=== PATIENT | male | born 1970 | race Caucasian/White ===

== ENCOUNTER 2021-04-11 01:32 | Emergency (ER) | payer OTHER | END 2021-04-11 05:10 | disposition home or self-care (01) | LOC: EC 01:32 | DX: R05.9 Cough, unspecified (principal); Z20.822 Contact with and (suspected) exposure to COVID-19 | CPT/HCPCS: 87635; 99283 ==

== ENCOUNTER 2023-08-31 14:29 | Inpatient (IN) | payer OTHER ==
--- NOTE | 2023-08-31 14:36 | ED ---
General Adult HPI - General Chief complaint: Chest Pain Stated complaint: chest pain Time Seen by Provider: 08/31/23 14:30 Source: patient, RN notes reviewed, old records reviewed - History of Present Illness Initial comments: Patient is a 52-year-old male who presents emergency department complaining of sudden onset chest pain. Has a history of hypertension. Denies any history of cardiac issues or stenting. States he was working on his car when he began to develop sudden substernal chest pain with radiation down the left arm. Describes it as a sharp, aching sensation. Endorses diaphoresis with it. Denies nausea or vomiting. Called EMS and presents for further evaluation at this time. Denies shortness of breath. Denies any abdominal pain. Has no other acute complaints. Patient received no medications from EMS. Presents for further evaluation. - Related Data Home Medications Medication Instructions Recorded Confirmed HYDROcodone/APAP 10-325MG [[place] 1 tab PO TID PRN 08/31/23 08/31/23 10-325] Meloxicam [Mobic] 15 mg PO DAILY PRN 08/31/23 08/31/23 amLODIPine [Norvasc] 5 mg PO DAILY 08/31/23 08/31/23 lisinopriL [Zestril] 20 mg PO DAILY 08/31/23 08/31/23 Allergies Allergy/AdvReac Type Severity Reaction Status Date / Time Penicillins Allergy Rash/Hives Verified 08/31/23 14:47 Review of Systems ROS Statement: Those systems with pertinent positive or pertinent negative responses have been documented in the HPI. Review of Systems: CONST: Denies fever EYES: Denies blurry vision ENT: Denies nasal congestion C/V: Endorses chest pain RESP: Denies shortness of breath GI: Denies abdominal pain : Denies dysuria SKIN: Denies rash. MSK: Denies joint pain. NEURO: Denies headache ROS Other: All systems not noted in ROS Statement are negative. General Exam - General Exam Comments Initial Comments: General: Appears in moderate distress secondary to chest pain HEAD: Normal with no signs of head trauma. EYES: PERRLA, EOMI, conjunctiva normal, no discharge. ENT: Hearing grossly intact, normal oropharynx. RESPIRATORY: Clear breath sounds bilaterally. No wheezes, rales, or rhonchi. C/V: Regular rate and rhythm. S1 and S2 auscultated, no edema, peripheral pulses 2+ and intact throughout ABD: Abd is soft, nontender, nondistended EXT: Normal range of motion, no obvious deformity SKIN: No rashes or lesions observed on exposed skin. NEURO: Alert and oriented x 4. Course Vital Signs 08/31/23 08/31/23 08/31/23 14:35 14:40 14:43 Temperature 97.3 F L Pulse Rate 91 85 84 Respiratory 18 18 16 Rate Blood Pressure 126/78 128/81 131/75 O2 Sat by Pulse 96 98 99 Oximetry 08/31/23 08/31/23 14:45 14:50 Temperature Pulse Rate 82 87 Respiratory 18 18 Rate Blood Pressure 140/82 143/91 O2 Sat by Pulse 98 97 Oximetry Medical Decision Making - Medical Decision Making Was pt. sent in by a medical professional or institution (, PA, [employer]OTTOM FELLER, urgent care, hospital, or fdc...) When possible be specific @ -No Did you speak to anyone other than the patient for history (EMS, parent, family, police, friend...)? What history was obtained from this source @ -No Did you review nursing and triage notes (agree or disagree)? Why? @ -I reviewed and agree with nursing and triage notes Were old charts reviewed (outside hosp., previous admission, EMS record, old EKG, old radiological studies, urgent care reports/EKG's, fdc records)? Report findings @ -Old charts reviewed Differential Diagnosis (chest pain, altered mental status, abdominal pain women, abdominal pain men, vaginal bleeding, weakness, fever, dyspnea, syncope, headache, dizziness, GI bleed, back pain, seizure, CVA, palpatations, mental health, musculoskeletal)? @ -Differential Chest Pain: Stable Angina, Unstable Angina, STEMI, NSTEMI Aortic Dissection, Pneumothorax, Musculoskeletal, Esophageal Spasm GERD, Cholecystitis, Pancreatitis, Zoster, this is not meant to be an all-inclusive list. EKG interpreted by me (3pts min.). @ -As above X-rays interpreted by me (1pt min.). @ -Chest x-ray reveals no obvious acute cardiopulmonary process. CT interpreted by me (1pt min.). @ -None done U/S interpreted by me (1pt. min.). @ -None done What testing was considered but not performed or refused? (CT, X-rays, U/S, labs)? Why? @ -None What meds were considered but not given or refused? Why? @ -For his Chest pain, considered nitro but I will avoid in the setting of concern for inferior SD. I offered morphine however patient declines at this time. Did you discuss the management of the patient with other professionals (professionals i.e. DrMarj, PA, SLE[employer]OTTOM FELLER, lab, RT, psych nurse, psychologist social, director of estate, teacher, commanding officer traffic division, housing case manager)? Give summary @ -Discussed with on-call geospatial engineer, Dr. Bran who was in agreement with the plan for STEMI activation and patient will report Durable Medical Equipment Technician as soon as staff is available. I spoke with [facility] physician group Dr. Lu who accepted the admission. Was smoking cessation discussed for >3mins.? @ -No Was critical care preformed (if so, how long)? @ -No Were there social determinants of health that impacted care today? How? (Homelessness, low income, unemployed, alcoholism, drug addiction, transportation, low edu. Level, literacy, decrease access to med. care, custodial, rehab)? @ -No Was there de-escalation of care discussed even if they declined (Discuss DNR or withdrawal of care, Hospice)? DNR status @ -No What co-morbidities impacted this encounter? (DM, HTN, Smoking, COPD, CAD, Cancer, CVA, ARF, Chemo, Hep., AIDS, mental health diagnosis, sleep apnea, morbid obesity)? @ -Hypertension, obesity Was patient admitted / discharged? Hospital course, mention meds given and route, prescriptions, significant lab abnormalities, going to OR and other pertinent info. @ -Based on the patient's presentation and physical exam, presents with sudden onset chest pain. Patient was placed in room T3a. EKG obtained showed a STEMI. STEMI pager was activated. I spoke with Dr. Bran who was in agreement plan for workup. Patient administered 1 L fluid bolus as well as 324 mg of aspirin and 80 mg of Lipitor. Patient placed on cardiac pads as well as a monitor. Placed on nasal cannula oxygen as well. Due to concern for it being an inferior SD, recommended no nitroglycerin and I did offer morphine for chest pain however patient declines at this time. Chest x-ray revealed no obvious acute cardiopulmonary process. Patient was dispositioned to the Durable Medical Equipment Technician. Laboratory studies returned after the patient was admitted and were remarkable for slightly elevated troponin of 0.038. Patient also had a leukocytosis of 14. I spoke with [facility] physician group Dr. Lu who accepted the admission. Undiagnosed new problem with uncertain prognosis? @ -No Drug Therapy requiring intensive monitoring for toxicity (Heparin, Nitro, Insulin, Cardizem)? @ -Heparin Were any procedures done? @ -No Diagnosis/symptom? @ -STEMI Acute, or Chronic, or Acute on Chronic? @ -Acute Uncomplicated (without systemic symptoms) or Complicated (systemic symptoms)? @ -Complicated Side effects of treatment? @ -No Exacerbation, Progression, or Severe Exacerbation? @ -No Poses a threat to life or bodily function? How? (Chest pain, [place], SD, pneumonia, PE, COPD, DKA, ARF, appy, cholecystitis, CVA, Diverticulitis, Homicidal, Suicidal, threat to staff... and all critical care pts) @ -Yes - Lab Data Result diagrams: 08/31/23 14:42 08/31/23 14:42 Lab Results 08/31/23 08/31/23 08/31/23 Range/Units 14:42 14:42 14:42 WBC 14.2 H (3.8-10.6) k/uL RBC 5.33 (4.30-5.90) m/uL Hgb 16.4 (13.0-17.5) gm/dL Hct 49.6 (39.0-53.0) % MCV 93.0 (80.0-100.0) fL MCH 30.8 (25.0-35.0) pg MCHC 33.1 (31.0-37.0) g/dL RDW 13.6 (11.5-15.5) % Plt Count 270 (150-450) k/uL MPV 8.0 Neutrophils % 56 % Lymphocytes % 33 % Monocytes % 6 % Eosinophils % 2 % Basophils % 1 % Neutrophils # 8.0 H (1.3-7.7) k/uL Lymphocytes # 4.6 (1.0-4.8) k/uL Monocytes # 0.9 (0-1.0) k/uL Eosinophils # 0.3 (0-0.7) k/uL Basophils # 0.1 (0-0.2) k/uL PT 10.9 (10.0-12.5) sec INR 1.0 (<1.2) APTT 22.0 (22.0-30.0) sec Sodium 140 (137-145) mmol/L Potassium 3.8 (3.5-5.1) mmol/L Chloride 105 (98-107) mmol/L Carbon Dioxide 24 (22-30) mmol/L Anion Gap 11 mmol/L BUN 14 (9-20) mg/dL Creatinine 0.90 (0.66-1.25) mg/dL Est GFR (CKD-EPI)AfAm >90 (>60 ml/min/1.73 sqM) Est GFR (CKD-EPI)NonAf >90 (>60 ml/min/1.73 sqM) Glucose 123 H (74-99) mg/dL Calcium 10.0 (8.4-10.2) mg/dL Total Bilirubin 0.7 (0.2-1.3) mg/dL AST 48 (17-59) U/L ALT 62 H (4-49) U/L Alkaline Phosphatase 89 (38-126) U/L Troponin I (0.000-0.034) ng/mL Total Protein 8.9 H (6.3-8.2) g/dL Albumin 5.0 (3.5-5.0) g/dL 08/31/23 Range/Units 14:42 WBC (3.8-10.6) k/uL RBC (4.30-5.90) m/uL Hgb (13.0-17.5) gm/dL Hct (39.0-53.0) % MCV (80.0-100.0) fL MCH (25.0-35.0) pg MCHC (31.0-37.0) g/dL RDW (11.5-15.5) % Plt Count (150-450) k/uL MPV Neutrophils % % Lymphocytes % % Monocytes % % Eosinophils % % Basophils % % Neutrophils # (1.3-7.7) k/uL Lymphocytes # (1.0-4.8) k/uL Monocytes # (0-1.0) k/uL Eosinophils # (0-0.7) k/uL Basophils # (0-0.2) k/uL PT (10.0-12.5) sec INR (<1.2) APTT (22.0-30.0) sec Sodium (137-145) mmol/L Potassium (3.5-5.1) mmol/L Chloride (98-107) mmol/L Carbon Dioxide (22-30) mmol/L Anion Gap mmol/L BUN (9-20) mg/dL Creatinine (0.66-1.25) mg/dL Est GFR (CKD-EPI)AfAm (>60 ml/min/1.73 sqM) Est GFR (CKD-EPI)NonAf (>60 ml/min/1.73 sqM) Glucose (74-99) mg/dL Calcium (8.4-10.2) mg/dL Total Bilirubin (0.2-1.3) mg/dL AST (17-59) U/L ALT (4-49) U/L Alkaline Phosphatase (38-126) U/L Troponin I 0.038 H* (0.000-0.034) ng/mL Total Protein (6.3-8.2) g/dL Albumin (3.5-5.0) g/dL - EKG Data -: EKG Interpreted by Me EKG Comments: 12-lead Electrocardiogram Interpretation Note EKG was reviewed and interpreted by myself. 12-lead ECG performed at 1430 is interpreted by me as revealing normal sinus rhythm at a rate of 79 beats per minute. [place] is rightward deviated. [place] interval is 223 ms, QRS duration is 111 ms, QTc is [address] segment elevations in lead II, 3, aVF with reciprocal depression in aVL.. R wave progression across the precordium was satisfactory. By my interpretation, this EKG is concerning for an acute STEMI.. Critical Care Time Critical Care Time: Yes Total Critical Care Time: 20 Disposition Clinical Impression: STEMI (ST elevation myocardial infarction) Disposition: ADMITTED IP TO THIS HOSP Condition: Serious Time of Disposition: 14:50
[2023-08-31] MEDS: HEPARIN SODIUM 1,000 UN/ML (10ML VL) IV ONE (14:40)
[2023-08-31] MEDS: SODIUM CHLORIDE 0.9% 1,000 ML IV STA (14:41)
[2023-08-31] MEDS: ATORVASTATIN 80 MG TAB PO STA (14:41)
[2023-08-31] MEDS: ASPIRIN 81 MG PO STA (14:41)
[2023-08-31] MEDS ORDERED: NALOXONE 0.4 MG/ML 1 ML VIAL IV PRN (14:58)
[2023-08-31] MEDS: IV FLUID CONTINUATION 100 ML IV ONE (14:59)
[2023-08-31] MEDS ORDERED: LIDOCAINE 1% INJ 10MG/ML (20 ML MDV) ONE (15:02)
[2023-08-31] MEDS ORDERED: HEPARIN SODIUM 1,000 UN/ML (10ML VL) ONE (15:02)
[2023-08-31] MEDS ORDERED: VERAPAMIL 2.5 MG/ML 2 ML AMP ONE ×2 (15:02→15:27)
[2023-08-31] MEDS: fentaNYL (PF) 50 MCG/1 ML VIAL IVP ONE (15:07)
[2023-08-31] MEDS: MIDAZOLAM 2 MG/2 ML VIAL IVP ONE (15:07)
[2023-08-31] MEDS ORDERED: fentaNYL (PF) 50 MCG/ML 2 ML AMP ONE (15:07)
[2023-08-31] MEDS: LIDOCAINE 1% INJ 10MG/ML (20 ML MDV) SQ ONE (15:08)
--- NOTE | 2023-08-31 15:11 | XR ---
EXAMINATION TYPE: XR chest 1V portable DATE OF EXAM: 08/31/2023 2:43 PM CLINICAL INDICATION:Male, 52 years old with history of chest pain; [facility] COMPARISON: None TECHNIQUE: XR chest 1V portable Frontal view of the chest. FINDINGS: Lungs/Pleura: Low lung volumes are present. There is no evidence of pleural effusion, focal consolida tion, or pneumothorax. Pulmonary vascularity: Unremarkable. Heart/mediastinum: Cardiomediastinal silhouette is unremarkable. Musculoskeletal: No acute osseous pathology. IMPRESSION: Low lung volumes with a generalized hazy appearance which could represent atelectasis versus pulmonar y edema correlate with serum BNP.
[2023-08-31] MEDS: VERAPAMIL SYRINGE (5 MG/10 ML) INTRAARTER ONE ×2 (15:12→15:30)
[2023-08-31] MEDS: HEPARIN SODIUM 1,000 UN/ML (10ML VL) IVP ONE (15:15)
[2023-08-31] MEDS: SODIUM CHLORIDE 0.9% 1,000 ML IV ONE (15:16)
[2023-08-31 15:22] LABS: Basophils # (A) 0.1 k/uL (0-0.2); Basophils % (A) 1 %; Eosinophils # (A) 0.3 k/uL (0-0.7); Eosinophils % (A) 2 %; HCT 49.6 % (39.0-53.0); HGB 16.4 gm/dL (13.0-17.5); Lymphocytes # (A) 4.6 k/uL (1.0-4.8); Lymphocytes % (A) 33 %; MCH 30.8 pg (25.0-35.0); MCHC 33.1 g/dL (31.0-37.0); Monocytes # (A) 0.9 k/uL (0-1.0); Monocytes % (A) 6 %; Neutrophils % (A) 56 %; Platelet Count 270 k/uL (150-450); RBC 5.33 m/uL (4.30-5.90); RDW 13.6 % (11.5-15.5); WBC 14.2 k/uL (3.8-10.6)
[2023-08-31 15:25] LABS: ALT 62 U/L (4-49); AST 48 U/L (17-59); African American GFR (CKD) >90 (>60 ml/min/1.73 sqM); Alkaline Phosphatase 89 U/L (38-126); Anion Gap 11 mmol/L; Blood Urea Nitrogen 14 mg/dL (9-20); Carbon Dioxide 24 mmol/L (22-30); Chloride 105 mmol/L (98-107); Glucose 123 mg/dL (74-99); Non-African American GFR(CKD) >90 (>60 ml/min/1.73 sqM); Potassium 3.8 mmol/L (3.5-5.1); Sodium 140 mmol/L (137-145); Total Bilirubin 0.7 mg/dL (0.2-1.3); Total Protein 8.9 g/dL (6.3-8.2)
[2023-08-31 15:26] LABS: Prothrombin Time 10.9 sec (10.0-12.5)
[2023-08-31] MEDS ORDERED: TICAGRELOR 90 MG TAB ONE (15:29)
[2023-08-31] MEDS: TICAGRELOR 90 MG TAB PO ONE (15:31)
[2023-08-31] MEDS: HYDROmorphone 0.5 MG/0.5 ML SYRINGE IVP ONE (15:42)
[2023-08-31] MEDS: IOPAMIDOL-370 100ML BTL INJ ONE (15:50)
[2023-08-31 16:20] LABS: Glucose,Whole Blood 130 mg/dL (70-110)
[2023-08-31] MEDS ORDERED: ZOLPIDEM 5 MG TAB PO PRN (16:25)
[2023-08-31] MEDS ORDERED: ATROPINE SULFATE 0.1 MG/ML 10ML SYRINGE IV PRN (16:25)
[2023-08-31] MEDS ORDERED: MAG HYDROX/AL HYDROX/SIMETH 30 ML CUP PO PRN (16:25)
[2023-08-31] MEDS ORDERED: RX INFO: IV CONTRAST WAS GIVEN 1 EACH MISC MISCELLANE PRN (16:25)
[2023-08-31] MEDS: SODIUM CHLORIDE 0.9% 1,000 ML in EMPTY BAG 1 BAG IV SCH (16:32)
--- NOTE | 2023-08-31 16:32 | P.PCN ---
Date of Procedure: 08/31/23 Operative Findings: PERCUTANEOUS CORONARY INTERVENTION Performing physician Carl Connell M.D. Procedure Performed: 1. Successful stenting of the proximal RCA using 4.0 x 28 mm Xience drug-eluting stent with an excellent angiographic results. 2. Adjunctive use of intravascular imaging (IVUS) Indication: Acute inferior ST elevation myocardial infarction Approach: Right radial artery Complications: None Level of Sedation: Moderate with a sedation length of 25 minutes Procedure Discussion: Please refer to diagnostic heart catheterization was performed by Dr. Bran earlier today. Anticoagulation was initiated using heparin with continuous ACT monitoring. Subsequently I did engage the RCA using JR4 guiding catheter. After that I did wired the RCA using a run-through wire. Balloon angioplasty was performed using 3.0 mm balloon after angiogram was performed. Then I did intravascular ultrasound of the RCA which showed a diameter around 4 mm. I deployed a 4.0 x 28 mm Xience drug-eluting stent where the stent was positioned under fluoroscopy guidance and deployed under fluoroscopy guidance. Intravascular ultrasound was performed again and showed that the stent was not well expanded. I did postdilated using 4.5 mm balloon with a subsequent angiogram and intravascular imaging showed great results and the patient had KAITLIN-3 flow and he was completely asymptomatic by the end of the procedure with no EKG changes. The procedure was completed with no complication Postprocedure Management: 1. Dual antiplatelet therapy using aspirin and Brilinta for 12 months 2. Aggressive cholesterol control 3. Risk factors modification
[2023-08-31] MEDS: HEPARIN SOD,PORK IN 0.45% NACL 25,000 UNIT in 0.45% NACL 1 250ML.BAG IV SCH (16:57)
[2023-08-31] MEDS: NITROGLYCERIN SL TABS 0.4 MG TAB SUBLINGUAL PRN (17:02)
[2023-08-31] MEDS: MORPHINE SULFATE 4 MG/ML SYRINGE IVP STA (17:16)
[2023-08-31] MEDS ORDERED: ACETAMINOPHEN TAB 325 MG TAB PO PRN (18:02)
[2023-08-31] MEDS ORDERED: bisacodyL 5 MG TABLET.DR PO PRN (18:02)
[2023-08-31] MEDS ORDERED: ONDANSETRON 4 MG/2 ML VIAL IVP PRN (18:02)
--- NOTE | 2023-08-31 18:07 | P.HPIM ---
History of Present Illness H&P Date: 08/31/23 Patient is a 52-year-old male with history of hypertension and tobacco dependency who presented to the emergency department with complaints of chest pain. He was activated as a code STEMI. On arrival vital signs are within normal limits. Patient was taken to the [facility] and underwent PCI to the RCA. Initial laboratory analysis included CBC, coags, CMP, and troponin which were remarkable for white blood cell count 14.2, glucose 123, ALT 62, and troponin 0.038. Chest x-ray reviewed low lung volumes with increased pulmonary vascular congestion. After his cath he was admitted to the ICU Patient seen and examined at bedside. He started having some chest pain yesterday. He then took a dose of lisinopril which she had not been compliant with at home. 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 This is progressed to left-sided chest pain and was associated with lightheaded and dizziness, nausea, diaphoresis, and numbness and tingling down into his left arm and up into his jaw. It reportedly lasted approximately 15 minutes before seeking care in the emergency department. He has had chest pain at home before but has never sought medical care for it because it was fleeting. He is attempting to reestablish with a primary care provider. Vital signs reviewed General: nontoxic, no distress, appears at stated age Derm: warm, dry Eyes: EOMI, no lid lag, anicteric sclera, pupils equal round reactive to light ENT: Nose and ears atraumatic Cardiovascular: S1S2 reg, no murmur, no edema Lungs: clear to auscultation bilateral, no rhonchi, no rales, no wheeze, no accessory muscle use Abdominal: soft, nontender to palpation, no guarding Ext: no gross muscle atrophy, no contractures Neuro: CN II-XII grossly intact, No focal neuro deficits Psych: Alert, oriented, appropriate affect Assessment/Plan: Inferior ST segment elevated myocardial infarction Hypertension -Aspirin 81 mg daily, Brilinta 90 mg twice daily, Lipitor 80 mg at night -Lisinopril 2.5 mg daily, metoprolol 25 mg twice daily -Check echocardiogram in a.m. -Follow telemetry - cardiology recommendations. Aspirin and Brilinta for 12 months with aggressive risk factor modification. - lipid profile and A1C -Due to contrast exposure will recheck basic metabolic profile tomorrow Leukocytosis, suspect reactive -Repeat CBC in a.m. Nicotine dependency Class III obesity -Tobacco cessation - outpatient structued weight loss Imaging: Chest x-ray is reviewed by myself demonstrates increased pulmonary vascular congestion Data Review: As per HPI The patient is admitted with an anticipated greater than 2 midnight stay for evaluation of []. Surrogate decision-maker: Car Ramos CODE STATUS:Full DVT prophylaxis:early ambulation Anticipated discharge date: in 48-[address]: home This dictation was prepared using MADS voice recognition software. Though every attempt is made to correct errors during dictation some may still exist. Past Medical History Past Medical History: Chest Pain / Angina, Hypertension, Myocardial Infarction (HI) Last Myocardial Infarction Date:: 08/31/23 History of Any Multi-Drug Resistant Organisms: None Reported Past Surgical History: No Surgical Hx Reported Smoking Status: Current every day smoker Past Alcohol Use History: None Reported Past Drug Use History: None Reported Medications and Allergies Home Medications Medication Instructions Recorded Confirmed Type HYDROcodone/APAP 10-325MG [[place] 1 tab PO TID PRN 08/31/23 08/31/23 History 10-325] Meloxicam [Mobic] 15 mg PO DAILY PRN 08/31/23 08/31/23 History amLODIPine [Norvasc] 5 mg PO DAILY 08/31/23 08/31/23 History lisinopriL [Zestril] 20 mg PO DAILY 08/31/23 08/31/23 History Allergies Allergy/AdvReac Type Severity Reaction Status Date / Time Penicillins Allergy Rash/Hives Verified 08/31/23 14:47 Physical Exam Osteopathic Statement: *. No significant issues noted on an osteopathic structural exam other than those noted in the History and Physical/Consult. Vitals: Vital Signs Temp Pulse Resp BP Pulse Ox 08/31/23 18:00 81 14 98 08/31/23 17:45 89 13 154/89 98 08/31/23 17:30 86 13 157/86 96 08/31/23 17:15 84 13 172/98 97 08/31/23 17:00 92 15 171/95 98 08/31/23 16:45 78 12 169/97 97 08/31/23 16:32 98.1 F 08/31/23 16:30 80 12 189/101 98 08/31/23 16:15 98.1 F 84 23 189/101 98 08/31/23 16:10 84 33 H 08/31/23 14:50 87 18 143/91 97 08/31/23 14:45 82 18 140/82 98 08/31/23 14:43 97.3 F L 84 16 131/75 99 08/31/23 14:40 85 18 128/81 98 08/31/23 14:35 91 18 126/78 96 Intake and Output 08/31/23 08/31/23 08/31/23 06:59 14:59 22:59 Intake Total 100 450 Balance 100 450 Intake: IV 100 450 Sodium Chloride 0.9% 1, 150 000 ml @ 0 mls/hr IV .[facility] Rx#:[id number] Other: Voiding Method Urinal Weight 155.582 kg 155.582 kg Results CBC & Chem 7: 08/31/23 14:42 08/31/23 14:42 Labs: Abnormal Lab Results - Last 24 Hours (Table) 08/31/23 08/31/23 08/31/23 Range/Units 14:42 14:42 14:42 WBC 14.2 H (3.8-10.6) k/uL Neutrophils # 8.0 H (1.3-7.7) k/uL Glucose 123 H (74-99) mg/dL POC Glucose (mg/dL) (70-110) mg/dL ALT 62 H (4-49) U/L Troponin I 0.038 H* (0.000-0.034) ng/mL Total Protein 8.9 H (6.3-8.2) g/dL 08/31/23 Range/Units 16:18 WBC (3.8-10.6) k/uL Neutrophils # (1.3-7.7) k/uL Glucose (74-99) mg/dL POC Glucose (mg/dL) 130 H (70-110) mg/dL ALT (4-49) U/L Troponin I (0.000-0.034) ng/mL Total Protein (6.3-8.2) g/dL Thrombosis Risk Factor Assmnt - Choose All That Apply Any of the Below Risk Factors Present?: Yes Each Factor Represents 1 point: Acute HI, Age 41-60 years, Obesity (BMI >25) Other Risk Factors: No Other congenital or acquired thrombophilia - If yes, enter type in comment: No Thrombosis Risk Factor Assessment Total Risk Factor Score: 3 Thrombosis Risk Factor Assessment Level: Moderate Risk
[2023-08-31 18:16] LABS: Amphetamine Screen,Urine Not Detected (NotDetected); Barbiturate Screen,Urine Not Detected (NotDetected); Benzodiazepines Screen,Urine Not Detected (NotDetected); Cocaine Screen,Urine Not Detected (NotDetected); Methadone Screen, Urine Not Detected (NotDetected); Opiate Screen,Urine Detected (NotDetected); Oxycodone Screen, Urine Not Detected (NotDetected); Phencyclidine Screen,Urine Not Detected (NotDetected); Tricyclic Antidepressant,Urine Not Detected (NotDetected); Urn Cannabinoid Scrn Not Detected (NotDetected)
[2023-08-31] MEDS: METOPROLOL TARTRATE 25 MG TAB PO SCH (19:00)
[2023-08-31] MEDS: HYDROmorphone 0.5 MG/0.5 ML SYRINGE IVP STA (19:43)
[2023-08-31] MEDS: amLODIPine 10 MG TAB PO STA (19:43)
[2023-08-31] MEDS: LOSARTAN 50 MG TAB PO STA (19:43)
[2023-08-31] MEDS: NITROGLYCERIN OINT 1 INCH/GM PACKET TOPICAL SCH (19:44)
--- NOTE | 2023-08-31 21:50 | CC ---
CARDIAC CATHETERIZATION REPORT INDICATION: Acute inferior wall myocardial infarction. PROCEDURE NOTE: After obtaining informed consent, left heart catheterization and coronary angiogram were performed via the right radial artery using standard [place] catheters. The patient tolerated the procedure well without any obvious immediate complications. Right radial artery access was obtained using Seldinger technique, 6-[place] sheath was placed. Catheters and wires were floated into the ascending aorta under fluoroscopic guidance. FINDINGS: 1. Hemodynamics: Central aortic pressure is 130/70 mm. 2. Left ventriculogram: Left ventriculogram is not performed. 3. Angiographic data: a.Right coronary artery is a large dominant vessel and shows an area of plaque rupture and an 80% to 90% stenosis in the proximal portion, which is responsible for the myocardial infarction. b.Left main coronary artery is a normal-sized vessel and is free of stenosis. Divides into left anterior descending coronary artery and circumflex coronary artery. LAD and its branches, circumflex coronary artery and its branches are free of significant stenosis. CONCLUSIONS: 80% to 90% right coronary artery stenosis with an area of plaque rupture. PLAN: The patient will undergo angioplasty with stent placement of the same. MMODL / IJN: [id number] /
--- NOTE | 2023-08-31 22:08 | CONS ---
CONSULTATION CHIEF COMPLAINT: Chest pain. HISTORY OF PRESENT ILLNESS: This is a 52-year-old gentleman with history of hypertension, dyslipidemia, and smoking, who presented to hospital complaining of chest pain. The chest pressure started about 2 hours prior to coming in, 8-10 out of intensity. His EKG showed evidence of inferior wall myocardial infarction. STEMI team was activated, and I have met the patient for the 1st time in the equipment operator/laborer/supervisor. The patient was stable hemodynamically and remained in sinus rhythm. He was advised to undergo emergent cardiac catheterization with a view to performing angioplasty. Understanding risks, benefits, he wished to proceed with it. PAST MEDICAL HISTORY: Significant for hypertension, dyslipidemia. MEDICATIONS: Are as charted. ALLERGIES: None. FAMILY HISTORY: Negative for premature coronary artery disease. SOCIAL HISTORY: Significant for smoking. REVIEW OF SYSTEMS: 14 out of 14 review of systems has been performed. Pertinents are as documented. EXAM: GENERAL: Comfortable at rest. VITAL SIGNS: Stable. CHEST EXAM: Reveals good air entry bilaterally. HEART EXAM: Reveals first and second heart sounds. No gallop, no murmur, no rub. ABDOMEN: Soft, nontender. EXTREMITIES: Did not reveal any edema. Peripheral pulses are felt. ASSESSMENT: Acute inferior wall myocardial infarction. PLAN: The patient will undergo emergent cardiac catheterization. ADDENDUM: Left ventricular end-diastolic pressure is 16 mm. There is no significant gradient across the aortic valve. Please include this in the procedure note. MMODL / IJN: [id number] /
[2023-09-01 05:54] LABS: HCT 45.9 % (39.0-53.0); HGB 15.2 gm/dL (13.0-17.5); MCHC 33.1 g/dL (31.0-37.0); MCV 93.7 fL (80.0-100.0); Mean Platelet Volume 7.5; Platelet Count 201 k/uL (150-450); RDW 13.6 % (11.5-15.5); WBC 9.8 k/uL (3.8-10.6)
[2023-09-01 07:08] LABS: African American GFR (CKD) >90 (>60 ml/min/1.73 sqM); Anion Gap 9 mmol/L; Blood Urea Nitrogen 9 mg/dL (9-20); Calcium 9.1 mg/dL (8.4-10.2); Carbon Dioxide 23 mmol/L (22-30); Chloride 106 mmol/L (98-107); Glucose 140 mg/dL (74-99); Non-African American GFR(CKD) >90 (>60 ml/min/1.73 sqM); Potassium 4.2 mmol/L (3.5-5.1); Sodium 138 mmol/L (137-145)
--- NOTE | 2023-09-01 08:10 | P.PN ---
Subjective Progress Note Date: 09/01/23 PROGRESS NOTE The patient is a 50-year-old male with a history of hypertension who presented with an acute inferior wall myocardial infarction, underwent coronary angiography by Dr. Bran and subsequently stenting of the RCA. He has vague chest discomfort this morning. He is in sinus mechanism, hemodynamically stable. There is no evidence of malignant arrhythmia. He received a 4.0 by 28 mm stent in the proximal RCA. His left coronary system has no significant obstructive disease Medications: Amlodipine 10 mg daily, aspirin once a day, Lipitor 80 mg daily, lisinopril 2.5 mg daily, metoprolol 25 mg twice a day, Nitropaste, Brilinta 90 mg twice a day PHYSICAL EXAMINATION: Blood pressure 135/69 heart rate 79 LUNGS: Clear to auscultation HEART: Regular rate and rhythm, S1, S2. No S3. No systolic murmur ABDOMEN: Soft, nontender, no organomegaly EXTREMETIES: No edema LAB: Potassium 4.2, BUN 9, creatinine 0.71. IMPRESSION: 1. Status post acute inferior wall myocardial infarction with stenting of the RCA 2. History of hypertension 3. History of tobacco use PLAN: 1. Increase physical activity 2. Follow blood pressure 3. Obtain an echocardiogram with Doppler 4. Transfer to telemetry Objective - Vital Signs Vital signs: Vital Signs Temp 98.6 F 09/01/23 00:00 Pulse 79 09/01/23 07:00 Resp 13 09/01/23 07:00 BP 135/69 09/01/23 07:00 Pulse Ox 96 09/01/23 07:00 FiO2 Intake & Output 08/31/23 09/01/23 09/01/23 18:59 06:59 18:59 Intake Total 550 560 Output Total 1650 750 Balance 550 -1090 -750 Weight 155.582 kg 152.9 kg Intake: IV 550 320 Sodium Chloride 0.9% 1, 150 320 000 ml @ 0 mls/hr IV .[facility] Rx#:[id number] Oral 240 Output: Urine 1650 750 Other: Voiding Method Urinal Urinal # Voids 0 - Labs CBC & Chem 7: 09/01/23 05:35 09/01/23 05:35 Labs: Abnormal Lab Results - Last 24 Hours (Table) 04/28/24 04/28/24 04/28/24 Range/Units 14:42 14:42 14:42 WBC 14.2 H (3.8-10.6) k/uL Neutrophils # 8.0 H (1.3-7.7) k/uL Glucose 123 H (74-99) mg/dL POC Glucose (mg/dL) (70-110) mg/dL ALT 62 H (4-49) U/L Troponin I 0.038 H* (0.000-0.034) ng/mL Total Protein 8.9 H (6.3-8.2) g/dL Urine Opiates Screen (NotDetected) 08/31/23 08/31/23 09/01/23 Range/Units 16:18 17:00 05:35 WBC (3.8-10.6) k/uL Neutrophils # (1.3-7.7) k/uL Glucose 140 H (74-99) mg/dL POC Glucose (mg/dL) 130 H (70-110) mg/dL ALT (4-49) U/L Troponin I (0.000-0.034) ng/mL Total Protein (6.3-8.2) g/dL Urine Opiates Screen Detected H (NotDetected)
[2023-09-01] MEDS: TICAGRELOR 90 MG TAB PO SCH (08:19)
[2023-09-01] MEDS: ASPIRIN 81 MG PO SCH (08:24)
[2023-09-01] MEDS: HYDROcodone/APAP 10-325MG 1 EACH TAB PO PRN (09:08)
[2023-09-01] MEDS: lisinopriL 5 MG TAB PO SCH (09:08)
[2023-09-01] MEDS ORDERED: DEXTROSE 50% SYRINGE 50 ML IVP PRN ×2 (09:55)
[2023-09-01 10:38] LABS: Chol/HDL Ratio 6.64 Ratio
[2023-09-01 11:39] LABS: Glucose,Whole Blood 111 mg/dL (70-110)
[2023-09-01] MEDS: INSULIN ASPART (NovoLOG) 100 UNIT/ML VIAL SQ SCH (11:40)
[2023-09-01] MEDS ORDERED: LABETALOL 5 MG/ML VIAL MDV IVP PRN (12:49)
[2023-09-01] MEDS: FAMOTIDINE 20 MG TAB PO SCH (13:08)
--- NOTE | 2023-09-01 13:45 | CA ---
Transthoracic Echo Report Name: Chava Cadena Age: 52 Gender: M : 1970 Exam Date: 09/01/2023 07:48 Exam Location: [place] [facility] Ht (in): 75 Wt (lb): 343 Ordering Physician: Carl Connell MD ([id number]) Attending/Referring Phys: [employer] Yadira Davis RDCS Procedure CPT: Indications: stemi Cardiac Hx: Technical Quality: Technically difficult study Contrast 1: Definity Total Dose (mL): 2 Contrast 2: Total Dose (mL): MEASUREMENTS (Male / Female) Normal Values 2D ECHO LV Diastolic Diameter PLAX 4.6 cm 4.2 - 5.9 / 3.9 - 5.3 cm LV Systolic Diameter PLAX 2.5 cm IVS Diastolic Thickness 1.5 cm 0.6 - 1.0 / 0.6 - 0.9 cm LVPW Diastolic Thickness 1.5 cm 0.6 - 1.0 / 0.6 - 0.9 cm LV Relative Wall Thickness 0.6 RV Internal Dim ED PLAX 4.4 cm LA Volume 71.4 cm??? 18 - 58 / 22 - 52 cm??? LA Volume Index 24.3 cm???/m??? 16 - 28 cm???/m??? M-MODE Aortic Root Diameter MM 3.7 cm LA Systolic Diameter MM 4.2 cm LA Ao Ratio MM 1.1 DOPPLER AV Peak Velocity 208.7 cm/s AV Peak Gradient 17.4 mmHg AV Mean Velocity 159.4 cm/s AV Mean Gradient 10.9 mmHg AV Velocity Time Integral 40.3 cm LVOT Peak Velocity 107.9 cm/s LVOT Peak Gradient 4.7 mmHg LVOT Velocity Time Integral 24.2 cm MV Area PHT 3.3 cm??? Mitral E Point Velocity 83.0 cm/s Mitral A Point Velocity 94.5 cm/s Mitral E to A Ratio 0.9 MV Deceleration Time 233.4 ms MV E' Velocity 7.1 cm/s Mitral E to MV E' Ratio 11.7 FINDINGS Left Ventricle Moderately increased left ventricular wall thickness. Left ventricular cavity size normal. Normal left ventricular systolic function with no obvious regional wall motion abnormalities. Left ventricular ejection fraction is estimated at 55-60 %. Grade 1 diastolic dysfunction. Right Ventricle Moderate right ventricular dilatation. Right ventricular systolic pressure within normal limits. Right Atrium Normal right atrial size. Left Atrium Moderately increased left atrial volume. Mitral Valve Structurally normal mitral valve. Mitral valve thickened. Mild mitral annular calcification. Mild mitral regurgitation. Aortic Valve No aortic regurgitation. Mild aortic stenosis with a peak gradient of 17 mmHg and a mean gradient of 11mmHg. Tricuspid Valve Structurally normal tricuspid valve. Mild tricuspid regurgitation. Pulmonic Valve Structurally normal pulmonic valve. Pericardium No pericardial effusion. Prominent epicardial fat. Aorta Normal size aortic root and proximal ascending aorta. CONCLUSIONS Normal LV systolic function Poorly visualized aortic valve. Mild aortic stenosis Previewed by: Dr. Carl Connell MD (Electronically Signed) Final Date: 01 September 2023 13:44
--- NOTE | 2023-09-01 13:46 | CT ---
EXAMINATION TYPE: CODE STROKE: CT brain wo contr DATE OF EXAM: 09/01/2023 COMPARISON: None INDICATION: Right face paresthesia DLP: 1047.1 mGycm, Automated exposure control for dose reduction was used. CONTRAST: None CT of the brain is performed utilizing 3 mm thick sections through the posterior fossa and 3 mm thick sections through the remaining calvarium. Study is performed within 24 hours of arrival to the hosp ital. No abnormal hyperdensity is present to suggest an acute intracranial hemorrhage. No mass lesion is evident. No acute infarcts are evident. Ventricles and sulci are appropriate for the patient age. Paranasal sinuses and mastoid air cells within the [id number]-ydys are clear. IMPRESSION: 1. No acute intracranial process. Follow-up MRI can be performed as clinically indicated.
--- NOTE | 2023-09-01 14:32 | CT ---
EXAMINATION TYPE: CT angio head neck DATE OF EXAM: 09/01/2023 HISTORY: right facial numbness COMPARISON: None CT DLP: 612.3 mGycm. Automated Exposure Control for Dose Reduction was Utilized. TECHNIQUE: CTA scan of the neck is performed with IV Contrast, patient injected with 65 mL of Isovue 370, axial images are obtained, coronal and sagittal reformatted images are reviewed. FINDINGS: Carotid/Vascular Structures: There is a 3 vessel arch. Common carotid arteries bifurcate into internal and external carotid arteries with minimal plaquing w ithout significant flow limiting stenosis. Vertebral arteries are codominant. Internal carotid arteries and vertebral arteries are patent to the skull base. Cervical of [place]: Vertebral basilar system appears normal. Posterior cerebral vasculature is unrema rkable. Internal carotid arteries bifurcate normally into A1 and M1 segments. A2 segments are normal. The anterior communicating artery is patent. The right posterior communicating artery is patent. More peripheral vascularity is better visualized on the left than the right. Correlate with symptoms. No abrupt cutoff is identified. On the reconstructed miffed images this does appear somewhat more sy mmetrical. IMPRESSION: 1. No flow-limiting stenosis bilateral carotid bifurcations. 2. Normal [place] of [place] 3. The more peripheral branches within the right cerebral hemisphere appear smaller than on the left lobe no abrupt cutoffs are identified. NASCET criteria was used in interpretation of this exam?
[2023-09-01 14:36] VITALS: BMI 42.1
--- NOTE | 2023-09-01 15:22 | P.CNNES ---
History of Present Illness Consult date: 09/01/23 Requesting physician: Emilie Underwood Reason for Consult: CVA History of Present Illness: Patient is a 52-year-old right-handed male with history of hypertension, tobacco use, was brought to the hospital by ambulance yesterday at 2:30 PM for acute onset of chest pain, feeling overheated, nausea vomiting, some shortness of breath, clammy feeling. Patient's and patient's sister were also present, who mentioned that along with the symptoms, patient also developed numbness of the left arm from mid upper arm down to the hand. Shortly after the right side became numb as well. All the symptoms occurred about 20 to 30 minutes before arrival to the ER. Patient was brought to the ER, diagnosed with acute NC. Glenn rucker underwent cardiac catheterization and placement of drug-eluting stent in the right coronary artery. Sometimes last night, patient noticed that his right side of the face was numb. The right facial numbness is coming and going, lasting between 5 minutes to 60 minutes. He denies any slurred speech or facial droop. Denies any focal weakness. Denies any problem with the vision. For these recurrent symptoms neurology has been consulted. Patient states he had history of a stroke 33 years ago. He was "horse playing" when someone jumped on his shoulder, and something broke loose and he had a stroke. He went to [facility] and was sent home in about 2 hours that everything was okay. He subsequently saw Dr. Fragoso, who diagnosed with CVA. Patient went back to [facility], and was observed for 8 hours and told he had a stroke and sent home. Patient states that he has dysfunctional right arm and leg for almost 6 months and then improved. He still has some residual deficits on the right, as he cannot run, and sometimes right leg would not move forward when trying to walk. Patient has history of hypertension for over 30 years, denies diabetes. He has hyperlipidemia. Patient does not take any antiplatelet medication at home. Patient smoked half pack per day since he was a teenager. Patient blood test shows normal CBC, basic metabolic panel. EKG shows sinus rhythm. Chest x-ray revealed low lung volumes with a generalized hazy appearance which could represent atelectasis versus pulmonary edema. Correlate with serum BNP. CT head revealed no acute intracranial process. I personally reviewed his CT head, and there is no acute process. No evidence of acute or remote stroke. Review of Systems As mentioned in detail in HPI, all pertinent positives and negatives. Patient does have depression. All systems: negative Past Medical History Past Medical History: Chest Pain / Angina, Hypertension, Myocardial Infarction (NC) Last Myocardial Infarction Date:: 08/31/23 History of Any Multi-Drug Resistant Organisms: None Reported Past Surgical History: No Surgical Hx Reported Smoking Status: Current every day smoker Past Alcohol Use History: None Reported Past Drug Use History: None Reported Medications and Allergies Home Medications Medication Instructions Recorded Confirmed Type HYDROcodone/APAP 10-325MG [[place] 1 tab PO TID PRN 08/31/23 08/31/23 History 10-325] Meloxicam [Mobic] 15 mg PO DAILY PRN 08/31/23 08/31/23 History amLODIPine [Norvasc] 5 mg PO DAILY 08/31/23 08/31/23 History lisinopriL [Zestril] 20 mg PO DAILY 08/31/23 08/31/23 History Allergies Allergy/AdvReac Type Severity Reaction Status Date / Time Penicillins Allergy Rash/Hives Verified 08/31/23 14:47 Physical Examination - Vital Signs Vital Signs: Vital Signs Temp Pulse Pulse Resp BP BP Pulse Ox 09/01/23 11:33 97.6 F 75 16 131/87 93 L 09/01/23 10:00 81 12 134/84 96 09/01/23 09:15 85 16 134/84 95 09/01/23 09:00 84 12 151/81 95 09/01/23 08:00 98 F 85 12 149/89 95 09/01/23 07:00 79 13 135/69 96 09/01/23 06:00 85 13 158/98 96 09/01/23 05:00 81 19 121/63 94 L 09/01/23 04:11 85 14 94 L 09/01/23 04:00 79 17 141/86 94 L 09/01/23 02:00 85 18 159/94 94 L 09/01/23 01:00 89 19 138/81 97 09/01/23 00:00 98.6 F 83 16 136/81 98 08/31/23 23:06 81 22 163/83 96 08/31/23 23:00 88 19 163/91 08/31/23 22:45 81 23 160/89 96 08/31/23 22:30 80 32 H 163/84 96 08/31/23 22:15 80 21 155/89 96 08/31/23 22:00 81 20 155/89 97 08/31/23 21:45 77 17 159/97 97 08/31/23 21:30 77 18 148/95 98 08/31/23 21:15 74 18 153/88 97 08/31/23 21:00 74 19 150/91 98 08/31/23 20:45 73 17 162/98 97 08/31/23 20:30 77 15 159/86 95 08/31/23 20:15 75 16 148/89 97 08/31/23 20:00 98.1 F 79 15 152/90 98 08/31/23 19:45 79 24 155/88 96 08/31/23 19:30 79 11 L 176/96 97 08/31/23 19:15 80 20 168/128 97 08/31/23 19:00 81 19 177/91 97 08/31/23 18:45 81 22 176/101 97 08/31/23 18:30 84 13 167/108 96 08/31/23 18:15 77 13 179/108 99 08/31/23 18:00 81 14 98 08/31/23 17:45 89 13 154/89 98 08/31/23 17:30 86 13 157/86 96 08/31/23 17:15 84 13 172/98 97 08/31/23 17:00 92 15 171/95 98 08/31/23 16:45 78 12 169/97 97 08/31/23 16:32 98.1 F 08/31/23 16:30 80 12 189/101 98 08/31/23 16:15 98.1 F 84 23 189/101 98 08/31/23 16:10 84 33 H 08/31/23 14:50 87 18 143/91 97 08/31/23 14:45 82 18 140/82 98 08/31/23 14:43 97.3 F L 84 16 131/75 99 08/31/23 14:40 85 18 128/81 98 08/31/23 14:35 91 18 126/78 96 Intake and Output 08/31/23 09/01/23 09/01/23 22:59 06:59 14:59 Intake Total 870 140 250 Output Total 450 1200 1050 Balance 420 -1060 -800 Intake: IV 630 140 Sodium Chloride 0.9% 1, 330 140 000 ml @ 0 mls/hr IV .[facility] Rx#:[id number] Oral 240 250 Output: Urine 450 1200 1050 Other: Voiding Method Urinal Urinal Urinal # Voids 0 0 Weight 155.582 kg 152.9 kg 152.9 kg Patient is a middle aged male, in no acute distress. Patient is alert awake oriented to time place and person. Speech and language functions are normal. Patient can name and repeat very well. No aphasia or dysarthria. Attention, concentration and fund of knowledge is adequate. On cranial nerve examination, pupils are equal, round and reacting to light, visual muir are full on confrontation, with no neglect on double simultaneous stimulation. Extraocular muscles are intact with no nystagmus. Face is symmetric, tongue protrudes to the midline. Palatal elevation and sensation normal, hearing and shoulder shrug normal, facial sensation normal. On muscle strength testing, there is no pronator drift and the strength is normal in arms and legs distally and proximally. Deep tendon reflexes are asymmetric (right/left) biceps 2/trace, brachioradialis 2/trace, knees 2+3/1+, ankle 2+/2 and plantar is upgoing on the right, and down on the left. Sensory to touch is equal with no neglect on double simultaneous stimulation. Cerebellar function showed no ataxia for jiqefk-rj-isum testing. No dysdiadochokinesia. No ataxia for fqlw-ia-[id number] testing on either side. Tone and bulk of muscles normal. Gait deferred.. On general examination, there is no carotid bruit or murmur, S1-S2 audible. Chest is clear on consultation. Abdomen is soft nontender. No organomegaly, bowel sounds present. Peripheral pulses are present. No peripheral edema. Results - Laboratory Findings CBC and BMP: 09/01/23 05:35 09/02/23 09:25 Abnormal Lab Findings: Abnormal Labs 08/31/23 08/31/23 08/31/23 14:42 14:42 14:42 WBC 14.2 H Neutrophils # 8.0 H Glucose 123 H POC Glucose (mg/dL) Hemoglobin A1c ALT 62 H Troponin I 0.038 H* Total Protein 8.9 H Triglycerides Cholesterol LDL Cholesterol, Calc HDL Cholesterol Urine Opiates Screen 08/31/23 08/31/23 09/01/23 16:18 17:00 05:35 WBC Neutrophils # Glucose POC Glucose (mg/dL) 130 H Hemoglobin A1c 6.6 H ALT Troponin I Total Protein Triglycerides Cholesterol LDL Cholesterol, Calc HDL Cholesterol Urine Opiates Screen Detected H 09/01/23 09/01/23 05:35 11:38 WBC Neutrophils # Glucose 140 H POC Glucose (mg/dL) 111 H Hemoglobin A1c ALT Troponin I Total Protein Triglycerides 180.00 H Cholesterol 219.00 H LDL Cholesterol, Calc 150.0 H HDL Cholesterol 33.00 L Urine Opiates Screen Assessment and Plan Assessment: * Recurrent right facial numbness, rule out stroke/TIA. * History of possible CVA at 33 years of age, with right-sided weakness that resolved in 6 months. * Hypertension * Hyperlipidemia * Tobacco use * New onset diabetes * Acute NC, status postcardiac stenting. * Obesity Plan: MRI of the brain without contrast, evaluate for acute CVA 2-D echo revealed moderately increased left ventricular wall thickness. Normal left ventricular systolic function with EF 55 to 60%. No obvious regional wall motion abnormalities. Moderate right ventricular dilation. Moderately increased left atrial volume. Mild aortic stenosis CTA head and neck showed: No flow-limiting stenosis bilateral carotid bifurcations. Normal [place] of [place]. The more peripheral branches within the right cerebral hemisphere appears smaller than on the left lobe, no abrupt cut offs. Fasting a.m. lipid panel cholesterol 219, LDL 150, HDL 33, triglycerides 180. Agree with starting Lipitor 80 mg daily. Hemoglobin A1c 6.6. Recommend healthy lifestyles, dietary modification, and follow A1c in 3 to 6 months. Will defer to IM, if any medical treatment needed. Permissive hypertension for next 24-48 hours Patient was not taking any antiplatelet medication prior to arrival. He has been started on dual antiplatelet medication with aspirin 81 mg and Brilinta 90 mg twice daily, which will be continued. Neuro checks every 2 hours. Telemetry monitoring rule out any arrhythmia PT, OT, speech therapy DVT prophylaxis: Heparin 5000 units subcu every 8 hours Neurology will continue to follow. Thank you for the consult. Time with Patient: Greater than 30
--- NOTE | 2023-09-01 16:37 | P.PN ---
Subjective Progress Note Date: 09/01/23 (delayed charting seen at approx 1045) Patient is a 52-year-old male with history of hypertension and tobacco dependency who presented to the emergency department with complaints of chest pain. He was activated as a code STEMI. On arrival vital signs are within normal limits. Patient was taken to the Wound Nurse and underwent PCI to the RCA. Initial laboratory analysis included CBC, coags, CMP, and troponin which were remarkable for white blood cell count 14.2, glucose 123, ALT 62, and troponin 0.038. Chest x-ray reviewed low lung volumes with increased pulmonary vascular congestion. After his cath he was admitted to the ICU. He did well after admission Patient seen and examined at bedside. Denies any new chest pain. No nausea or vomiting. Overall feeling better than yesterday. All questions answered. Still feeling anxious. Vital signs reviewed General: Nontoxic, no distress, appears at stated age Cardiovascular: S1S2 reg, no murmur Lungs: CTA bilateral, no rhonchi, no rales, no accessory muscle use Abdominal: Soft, nontender to palpation, no guarding Ext: No gross muscle atrophy, no edema b/l lower extremities, no contractures Neuro: CN II-XI grossly intact, no focal neuro deficits Psych: Alert, oriented, appropriate affect Assessment/Plan: Inferior ST segment elevated myocardial infarction Hypertension Dyslipidemia -Aspirin 81 mg daily, Brilinta 90 mg twice daily, Lipitor 80 mg at night -Lisinopril 5 mg daily, metoprolol 25 mg twice daily - Await echocardiogram -Cardiology note reviewed: Await echo, increase physical activity -Follow telemetry Newly discovered diabetes -A1c 6.6. Discussed with patient that we will follow his blood sugars during his hospital stay and if they remain decently controlled could consider weight loss and dietary modifications, however if they are increasing could consider medication such as metformin or Farxiga. Patient is in agreement -Sliding scale insulin -Follow blood sugars Nicotine dependency Class III obesity -Tobacco cessation - outpatient structured weight loss Leukocytosis, resolved update: I received notification from the nurse at around 1 PM that patient was developing right-sided facial numbness. Had her complete an NIH stroke scale which was 1. CT head was ordered which showed no acute intracranial process. CTA head and neck was ordered which showed no definitive cutoff and no significant carotid stenosis. Neurology was consulted. Patient is already on aspirin and Brilinta. PT/OT/speech consulted. Possible TIA. Neurochecks ordered. Imaging: None new Data Review: Labs reviewed from today include CBC and basic metabolic profile which are remarkable for glucose 140. A1c elevated at 6.6. Lipids elevated LDL at 150. DVT prophylaxis: Heparin Anticipated discharge date: in 24-[address]: Home This dictation was prepared using [employer] voice recognition software. Though every attempt is made to correct errors during dictation some may still exist. Objective - Vital Signs Vital signs: Vital Signs Temp 97.6 F 09/01/23 11:33 Pulse 75 09/01/23 11:33 Resp 16 09/01/23 11:33 BP 131/87 09/01/23 11:33 Pulse Ox 93 L 09/01/23 11:33 FiO2 Intake & Output 08/31/23 09/01/23 09/01/23 18:59 06:59 18:59 Intake Total 550 560 250 Output Total 1650 1050 Balance 550 -1090 -800 Weight 155.582 kg 152.9 kg 152.9 kg Intake: IV 550 320 Sodium Chloride 0.9% 1, 150 320 000 ml @ 0 mls/hr IV .[facility] Rx#:[id number] Oral 240 250 Output: Urine 1650 1050 Other: Voiding Method Urinal Urinal Urinal # Voids 0 - Labs CBC & Chem 7: 09/01/23 05:35 09/01/23 05:35 Labs: Abnormal Lab Results - Last 24 Hours (Table) 08/31/23 09/01/23 09/01/23 Range/Units 17:00 05:35 05:35 Glucose 140 H (74-99) mg/dL POC Glucose (mg/dL) (70-110) mg/dL Hemoglobin A1c 6.6 H (<=6.0) % Triglycerides 180.00 H (0.00-149.00) mg/dL Cholesterol 219.00 H (0.00-200.00) mg/dL LDL Cholesterol, Calc 150.0 H (0.0-131.0) mg/dL HDL Cholesterol 33.00 L (40.00-60.00) mg/dL Urine Opiates Screen Detected H (NotDetected) 09/01/23 Range/Units 11:38 Glucose (74-99) mg/dL POC Glucose (mg/dL) 111 H (70-110) mg/dL Hemoglobin A1c (<=6.0) % Triglycerides (0.00-149.00) mg/dL Cholesterol (0.00-200.00) mg/dL LDL Cholesterol, Calc (0.0-131.0) mg/dL HDL Cholesterol (40.00-60.00) mg/dL Urine Opiates Screen (NotDetected)
[2023-09-01 17:14] LABS: Glucose,Whole Blood 130 mg/dL (70-110)
[2023-09-01] MEDS: HEPARIN SODIUM,PORCINE 5,000 UNIT/ML 1 ML VIAL SQ SCH (17:37)
[2023-09-01 19:58] LABS: Glucose,Whole Blood 154 mg/dL (70-110)
[2023-09-01] MEDS: ATORVASTATIN 80 MG TAB PO SCH (20:38)
[2023-09-02 06:08] LABS: Glucose,Whole Blood 133 mg/dL (70-110)
[2023-09-02] MEDS: ALPRAZolam 0.5 MG TAB PO STA (10:36)
[2023-09-02 11:33] LABS: African American GFR (CKD) >90 (>60 ml/min/1.73 sqM); Anion Gap 10 mmol/L; Blood Urea Nitrogen 12 mg/dL (9-20); Calcium 9.4 mg/dL (8.4-10.2); Carbon Dioxide 23 mmol/L (22-30); Chloride 103 mmol/L (98-107); Glucose 188 mg/dL (74-99); Non-African American GFR(CKD) >90 (>60 ml/min/1.73 sqM); Potassium 4.2 mmol/L (3.5-5.1); Sodium 136 mmol/L (137-145)
[2023-09-02 12:10] LABS: Glucose,Whole Blood 105 mg/dL (70-110)
--- NOTE | 2023-09-02 13:39 | P.PN ---
Subjective HISTORY OF PRESENT ILLNESS: 09/01/2023 The patient is a 50-year-old male with a history of hypertension who presented with an acute inferior wall myocardial infarction, underwent coronary angiography by Dr. Bran and subsequently stenting of the RCA. He has vague chest discomfort this morning. He is in sinus mechanism, hemodynamically stable. There is no evidence of malignant arrhythmia. He received a 4.0 by 28 mm stent in the proximal RCA. His left coronary system has no significant obstructive disease 09/02/2023 Patient examined this morning at the bedside. Patient currently denies chest pain or pressure. Patient states he had an episode of chest pain earlier this morning. He denies shortness of breath. Echocardiogram completed revealing ejection fraction 55 to 60%, mild MR, mild TR, and mild . Vital signs are stable. Blood pressure 130/76. Yesterday afternoon, the patient developed numbness of his face which is since resolved. Neurology was consulted for evaluation. CT brain completed with no evidence of CVA. CTA also completed with no significant abnormalities noted. Patient is scheduled to undergo MRI of the brain. PHYSICAL EXAM: VITAL SIGNS: Reviewed. GENERAL: Well-developed in no acute distress. NECK: Supple. No JVD or thyromegaly LUNGS: Respirations even and unlabored. Lungs essentially clear to auscultation bilaterally. HEART: Regular rate and rhythm. S1 and S2 heard. EXTREMITIES: Normal range of motion. No clubbing or cyanosis. Peripheral pulses intact. No lower extremity edema ASSESSMENT: Acute inferior wall myocardial infarction, status post stenting of the RCA Hypertension Nicotine dependence Mild aortic stenosis Facial numbness, CT negative for CVA PLAN: Continue dual antiplatelet therapy with aspirin and Brilinta for 12 months Continue high intensity statin. LDL goal less than 70. Continue additional cardiac medications Neurology following. MRI of the brain pending Further recommendations pending patient course Patient to follow-up postdischarge with Dr. Bran Nurse practitioner note has been reviewed by physician. Signing provider agrees with the documented findings, assessment, and plan of care documented by INDEX CLERK as a scribe. Objective - Vital Signs Vital signs: Vital Signs Temp 98.1 F 09/02/23 08:00 Pulse 72 09/02/23 10:15 Resp 16 09/02/23 10:15 BP 130/73 09/02/23 10:15 Pulse Ox 92 L 09/02/23 10:15 FiO2 Intake & Output 09/01/23 09/02/23 09/02/23 18:59 06:59 18:59 Intake Total 250 118 Output Total 1050 Balance -800 118 Weight 152.9 kg 149 kg Intake: Oral 250 118 Output: Urine 1050 Other: Voiding Method Urinal Urinal # Voids 1 - Labs CBC & Chem 7: 09/01/23 05:35 09/02/23 09:25 Labs: Abnormal Lab Results - Last 24 Hours (Table) 09/01/23 09/01/23 09/01/23 Range/Units 11:38 17:11 19:55 POC Glucose (mg/dL) 111 H 130 H 154 H (70-110) mg/dL 09/02/23 Range/Units 06:06 POC Glucose (mg/dL) 133 H (70-110) mg/dL
[2023-09-02 16:30] LABS: Glucose,Whole Blood 144 mg/dL (70-110)
--- NOTE | 2023-09-02 17:23 | P.PN ---
Subjective Progress Note Date: 09/02/23 (delayed charting seen at 1015) Patient is a 52-year-old male with history of hypertension and tobacco dependency who presented to the emergency department with complaints of chest pain. He was activated as a code STEMI. On arrival vital signs are within normal limits. Patient was taken to the [facility] and underwent PCI to the RCA. Initial laboratory analysis included CBC, coags, CMP, and troponin which were remarkable for white blood cell count 14.2, glucose 123, ALT 62, and troponin 0.038. Chest x-ray reviewed low lung volumes with increased pulmonary vascular congestion. After his cath he was admitted to the ICU. He did well after admission, but then develoepd repeat chest pain and right sided facial numbness on 08/31. At htat time he underwent CT brain which was negative for acute process and CTA head and neck which did not show any acute thrombus. Patient seen at bedside. He continues to have some chest pain. He states it started today while he was making a list of everything he needs to change when he goes home. He also now reports that versus numbness there is burning of his face. I suggested that this may be related to anxiety as he is in agreement. We will try dose of Xanax. Checked back in with nursing and Xanax did help to improve his symptoms. Vital signs reviewed General: Nontoxic, no distress, appears at stated age Cardiovascular: S1S2 reg, no murmur Lungs: CTA bilateral, no rhonchi, no rales, no accessory muscle use Abdominal: Soft, nontender to palpation, no guarding Ext: No gross muscle atrophy, no edema b/l lower extremities, no contractures Neuro: CN II-XI grossly intact, no focal neuro deficits Psych: Alert, oriented, appropriate affect Assessment/Plan: Inferior ST segment elevated myocardial infarction Hypertension Dyslipidemia -Aspirin 81 mg daily, Brilinta 90 mg twice daily, Lipitor 80 mg at night -Lisinopril 5 mg daily, metoprolol 25 mg twice daily -Cardiology note reviewed: Continue with dual antiplatelet therapy. Await MRI. Follow-up with Dr. Bran on discharge. -Follow telemetry Right-sided facial paresthesias -Neurology consultation reviewed -Await MRI -Continue on aspirin 81 mg daily and Lipitor 80 mg at night. -Given acute myocardial infarction requiring stent will continue with lisinopril and metoprolol. Newly discovered diabetes -A1c 6.6. Discussed with patient that we will follow his blood sugars during his hospital stay and if they remain decently controlled could consider weight loss and dietary modifications. -Sliding scale insulin -Follow blood sugars Nicotine dependency Class III obesity -Tobacco cessation - outpatient structured weight loss Leukocytosis, resolved Imaging: Echocardiogram reviewed: Ejection fraction 55 to 60%, mild aortic stenosis. Grade I diastolic dysfunction Data Review: Labs reviewed from today include CBC and basic metabolic profile which are remarkable for glucose 140. A1c elevated at 6.6. Lipids elevated LDL at 150. DVT prophylaxis: Heparin Anticipated discharge date: in 24-[address]: Home This dictation was prepared using [employer] voice recognition software. Though every attempt is made to correct errors during dictation some may still exist. Objective - Vital Signs Vital signs: Vital Signs Temp 98.2 F 09/02/23 16:56 Pulse 73 09/02/23 16:56 Resp 16 09/02/23 16:56 BP 129/73 09/02/23 16:56 Pulse Ox 94 L 09/02/23 16:56 FiO2 Intake & Output 09/01/23 09/02/23 09/02/23 18:59 06:59 18:59 Intake Total 250 236 Output Total 1050 Balance -800 236 Weight 152.9 kg 149 kg Intake: Oral 250 236 Output: Urine 1050 Other: Voiding Method Urinal Urinal # Voids 1 1 - Labs CBC & Chem 7: 09/01/23 05:35 09/02/23 09:25 Labs: Abnormal Lab Results - Last 24 Hours (Table) 09/01/23 09/01/23 09/02/23 Range/Units 17:11 19:55 06:06 Sodium (137-145) mmol/L Glucose (74-99) mg/dL POC Glucose (mg/dL) 130 H 154 H 133 H (70-110) mg/dL Hemoglobin A1c (<=6.0) % 09/02/23 09/02/23 09/02/23 Range/Units 09:25 09:25 16:28 Sodium 136 L (137-145) mmol/L Glucose 188 H (74-99) mg/dL POC Glucose (mg/dL) 144 H (70-110) mg/dL Hemoglobin A1c 6.6 H (<=6.0) %
[2023-09-02 20:10] LABS: Glucose,Whole Blood 119 mg/dL (70-110)
[2023-09-02] MEDS: MELATONIN 3 MG TABLET PO PRN (20:28)
[2023-09-03 06:19] LABS: Glucose,Whole Blood 126 mg/dL (70-110)
--- NOTE | 2023-09-03 10:00 | P.PN ---
Subjective Progress Note Date: 09/02/23 Patient was seen for a follow-up. Patient denies any changes in his condition. Still has numbness on the right side of the head/face region. No new concerns. Objective - Vital Signs Vital signs: Vital Signs Temp 98.2 F 09/02/23 16:56 Pulse 73 09/02/23 16:56 Resp 16 09/02/23 16:56 BP 129/73 09/02/23 16:56 Pulse Ox 94 L 09/02/23 16:56 FiO2 Intake & Output 09/01/23 09/02/23 09/02/23 18:59 06:59 18:59 Intake Total 250 236 Output Total 1050 Balance -800 236 Weight 152.9 kg 149 kg Intake: Oral 250 236 Output: Urine 1050 Other: Voiding Method Urinal Urinal # Voids 1 1 - Exam No change. - Labs CBC & Chem 7: 09/01/23 05:35 09/02/23 09:25 Labs: Abnormal Lab Results - Last 24 Hours (Table) 09/01/23 09/02/23 09/02/23 Range/Units 19:55 06:06 09:25 Sodium (137-145) mmol/L Glucose (74-99) mg/dL POC Glucose (mg/dL) 154 H 133 H (70-110) mg/dL Hemoglobin A1c 6.6 H (<=6.0) % 09/02/23 09/02/23 Range/Units 09:25 16:28 Sodium 136 L (137-145) mmol/L Glucose 188 H (74-99) mg/dL POC Glucose (mg/dL) 144 H (70-110) mg/dL Hemoglobin A1c (<=6.0) % Assessment and Plan Assessment: * Recurrent right sided head/facial numbness, rule out stroke/TIA. * History of possible CVA at 33 years of age, with right-sided weakness that resolved in [address] head showed no acute or remote stroke. * Hypertension * Hyperlipidemia * Tobacco use * New onset diabetes * Acute UT, status postcardiac stenting. * Obesity Plan: Await MRI of the brain without contrast, evaluate for acute CVA 2-D echo revealed moderately increased left ventricular wall thickness. Normal left ventricular systolic function with EF 55 to 60%. No obvious regional wall motion abnormalities. Moderate right ventricular dilation. Moderately increased left atrial volume. Mild aortic stenosis CTA head and neck showed: No flow-limiting stenosis bilateral carotid bifurcations. Normal [place]. The more peripheral branches within the right cerebral hemisphere appears smaller than on the left lobe, no abrupt cut offs. Fasting a.m. lipid panel cholesterol 219, LDL 150, HDL 33, triglycerides 180. Agree with starting Lipitor 80 mg daily. Hemoglobin A1c 6.6. Recommend healthy lifestyles, dietary modification, and follow A1c in 3 to 6 months. Will defer to IM, if any medical treatment needed. Permissive hypertension for next 24-48 hours Patient was not taking any antiplatelet medication prior to arrival. He has been started on dual antiplatelet medication with aspirin 81 mg and Brilinta 90 mg twice daily, which will be continued. Neuro checks every 2 hours. Telemetry monitoring rule out any arrhythmia PT, OT, speech therapy DVT prophylaxis: Heparin 5000 units subcu every 8 hours
[2023-09-03 11:39] LABS: Glucose,Whole Blood 157 mg/dL (70-110)
--- NOTE | 2023-09-03 13:10 | P.PN ---
Subjective HISTORY OF PRESENT ILLNESS: 09/01/2023 The patient is a 50-year-old male with a history of hypertension who presented with an acute inferior wall myocardial infarction, underwent coronary angiography by Dr. Bran and subsequently stenting of the RCA. He has vague chest discomfort this morning. He is in sinus mechanism, hemodynamically stable. There is no evidence of malignant arrhythmia. He received a 4.0 by 28 mm stent in the proximal RCA. His left coronary system has no significant obstructive disease 09/02/2023 Patient examined this morning at the bedside. Patient currently denies chest pain or pressure. Patient states he had an episode of chest pain earlier this morning. He denies shortness of breath. Echocardiogram completed revealing ejection fraction 55 to 60%, mild MR, mild TR, and mild . Vital signs are stable. Blood pressure 130/76. Yesterday afternoon, the patient developed numbness of his face which is since resolved. Neurology was consulted for evaluation. CT brain completed with no evidence of CVA. CTA also completed with no significant abnormalities noted. Patient is scheduled to undergo MRI of the brain. 09/03/2023 Patient examined this morning at the bedside. Patient currently denies chest pain or pressure. He denies shortness of breath. Vital signs are pending. Blood pressure is stable at 118/68. Telemetry reveals sinus mechanism. MRI is still pending. PHYSICAL EXAM: VITAL SIGNS: Reviewed. GENERAL: Well-developed in no acute distress. NECK: Supple. No JVD or thyromegaly LUNGS: Respirations even and unlabored. Lungs essentially clear to auscultation bilaterally. HEART: Regular rate and rhythm. S1 and S2 heard. EXTREMITIES: Normal range of motion. No clubbing or cyanosis. Peripheral pulses intact. No lower extremity edema ASSESSMENT: Acute inferior wall myocardial infarction, status post stenting of the RCA Hypertension Nicotine dependence Mild aortic stenosis Facial numbness, CT negative for CVA, MRI pending PLAN: Continue dual antiplatelet therapy with aspirin and Brilinta for 12 months Continue high intensity statin. LDL goal less than 70. Continue additional cardiac medications Neurology following. MRI of the brain pending Further recommendations pending patient course Patient is stable for discharge from a cardiac standpoint Patient to follow-up postdischarge with Dr. Bran Nurse practitioner note has been reviewed by physician. Signing provider agrees with the documented findings, assessment, and plan of care documented by RUBBER TUBING SPLICER as a scribe. Objective - Vital Signs Vital signs: Vital Signs Temp 98.5 F 09/03/23 11:33 Pulse 83 09/03/23 11:33 Resp 17 09/03/23 11:33 BP 118/68 09/03/23 11:33 Pulse Ox 94 L 09/03/23 11:33 FiO2 Intake & Output 09/02/23 09/03/23 09/03/23 18:59 06:59 18:59 Intake Total 236 480 Balance 236 480 Weight 148.5 kg Intake: Oral 236 480 Other: Voiding Method Urinal Urinal # Voids 1 1 - Labs CBC & Chem 7: 09/01/23 05:35 09/02/23 09:25 Labs: Abnormal Lab Results - Last 24 Hours (Table) 09/02/23 09/02/23 09/02/23 Range/Units 09:25 16:28 20:07 POC Glucose (mg/dL) 144 H 119 H (70-110) mg/dL Hemoglobin A1c 6.6 H (<=6.0) % 09/03/23 09/03/23 Range/Units 06:17 11:37 POC Glucose (mg/dL) 126 H 157 H (70-110) mg/dL Hemoglobin A1c (<=6.0) %
[2023-09-03] MEDS: hydrOXYzine pamoate 25 MG CAP PO PRN (14:14)
[2023-09-03 16:39] LABS: Glucose,Whole Blood 174 mg/dL (70-110)
--- NOTE | 2023-09-03 17:43 | P.PN ---
Subjective Progress Note Date: 09/03/23 (delayed charting seen at 1015) Patient is a 52-year-old male with history of hypertension and tobacco dependency who presented to the emergency department with complaints of chest pain. He was activated as a code STEMI. On arrival vital signs are within normal limits. Patient was taken to the [facility] and underwent PCI to the RCA. Initial laboratory analysis included CBC, coags, CMP, and troponin which were remarkable for white blood cell count 14.2, glucose 123, ALT 62, and troponin 0.038. Chest x-ray reviewed low lung volumes with increased pulmonary vascular congestion. After his cath he was admitted to the ICU. He did well after admission, but then developed repeat chest pain and right sided facial numbness on 08/31. At htat time he underwent CT brain which was negative for acute process and CTA head and neck which did not show any acute thrombus. MRI pending. Patient seen at bedside. He states that the Xanax helps with his chest pain and burning in his face. He has not had any additional chest pain today or burning his face. He would like a prescription for Vistaril on discharge. He has no other complaints at this time other than the bruising due to his heparin shots. Discussed with patient he would like to not take medications for diabetes if possible. He is willing to work on dietary changes as well as weight loss and will follow with PCP closely for repeat in 3 months. I did discuss with him that if MRI demonstrates stroke he should be on a medication. He is in agreement. Vital signs reviewed General: Nontoxic, no distress, appears at stated age Cardiovascular: S1S2 reg, no murmur Lungs: CTA bilateral, no rhonchi, no rales, no accessory muscle use Abdominal: Soft, nontender to palpation, no guarding Ext: No gross muscle atrophy, no edema b/l lower extremities, no contractures Neuro: CN II-XI grossly intact, no focal neuro deficits Psych: Alert, oriented, appropriate affect Assessment/Plan: Inferior ST segment elevated myocardial infarction Hypertension Dyslipidemia -Aspirin 81 mg daily, Brilinta 90 mg twice daily, Lipitor 80 mg at night -Lisinopril 5 mg daily, metoprolol 25 mg twice daily -Cardiology note reviewed: Continue with dual antiplatelet therapy. Follow-up with Dr. Bran on discharge. Echocardiogram reviewed: Ejection fraction 55 to 60%, mild aortic stenosis. Grade I diastolic dysfunction -Follow telemetry Anxiety - Hydroxizine 25 mg PO TID prn anxiety Right-sided facial paresthesias -Await further neruology recs -Await MRI -Continue on aspirin 81 mg daily and Lipitor 80 mg at night. -Given acute myocardial infarction requiring stent will continue with lisinopril and metoprolol. Newly discovered diabetes -A1c 6.6. Discussed with patient that we will follow his blood sugars during his hospital stay and if they remain decently controlled could consider weight loss and dietary modifications. -Sliding scale insulin -Follow blood sugars Nicotine dependency Class III obesity -Tobacco cessation - outpatient structured weight loss Leukocytosis, resolved Imaging: None new Data Review: Labs reviewed from today include blood sugars. These have ranged from 119 up to 174. DVT prophylaxis: Heparin Anticipated discharge date: in 24-[address]: Home This dictation was prepared using [employer] voice recognition software. Though every attempt is made to correct errors during dictation some may still exist. Objective - Vital Signs Vital signs: Vital Signs Temp 98.5 F 09/03/23 16:00 Pulse 87 09/03/23 16:00 Resp 17 09/03/23 16:00 BP 134/81 09/03/23 16:00 Pulse Ox 98 09/03/23 16:00 FiO2 Intake & Output 09/02/23 09/03/23 09/03/23 18:59 06:59 18:59 Intake Total 236 960 Balance 236 960 Weight 148.5 kg Intake: Oral 236 960 Other: Voiding Method Urinal Urinal # Voids 1 1 1 - Labs CBC & Chem 7: 09/01/23 05:35 09/02/23 09:25 Labs: Abnormal Lab Results - Last 24 Hours (Table) 09/02/23 09/03/23 09/03/23 Range/Units 20:07 06:17 11:37 POC Glucose (mg/dL) 119 H 126 H 157 H (70-110) mg/dL 09/03/23 Range/Units 16:37 POC Glucose (mg/dL) 174 H (70-110) mg/dL
--- NOTE | 2023-09-03 19:37 | MR ---
EXAMINATION TYPE: MR brain wo con DATE OF EXAM: 09/03/2023 7:23 PM CLINICAL INDICATION:Male, 52 years old with history of Recurrent TIA; PHH, Recurrent TIA, Hx recent c ardiac stent COMPARISON: 09/01/2023. TECHNIQUE: Multi planar, multi sequence imaging was performed through the brain including: T1, T2, In version recovery, Diffusion weighted imaging, and gradient echo imaging. No gadolinium was given. FINDINGS: The laguerre-white junctions, ventricular system, basal cisterns appear unremarkable. Midline structures show no abnormality. Diffusion-weighted imaging shows no evidence of restricted diffusion. The suscep tibility weighted images do not reveal any evidence for micro-hemorrhage. The bone marrow signal is within normal limits. Paranasal sinuses and mastoid air cells: No significant paranasal sinus disease. Visualized orbits: Orbital contents are intact. IMPRESSION: No evidence of intracranial mass or acute/subacute infarct.
[2023-09-03 20:12] LABS: Glucose,Whole Blood 148 mg/dL (70-110)
[2023-09-04 06:17] LABS: Glucose,Whole Blood 209 mg/dL (70-110)
[2023-09-04 08:38] VITALS: BP 155/91; PULSE 108; RESP 18; TEMP 98.2
[2023-09-04 09:27] LABS: Basophils # (A) 0.1 k/uL (0-0.2); Basophils % (A) 1 %; Eosinophils # (A) 0.2 k/uL (0-0.7); Eosinophils % (A) 2 %; HCT 49.3 % (39.0-53.0); HGB 16.1 gm/dL (13.0-17.5); Lymphocytes # (A) 2.2 k/uL (1.0-4.8); Lymphocytes % (A) 21 %; MCH 30.7 pg (25.0-35.0); MCHC 32.7 g/dL (31.0-37.0); MCV 93.9 fL (80.0-100.0); Mean Platelet Volume 7.8; Monocytes # (A) 0.5 k/uL (0-1.0); Monocytes % (A) 5 %; Neutrophils % (A) 69 %; Platelet Count 248 k/uL (150-450); RBC 5.25 m/uL (4.30-5.90); RDW 13.1 % (11.5-15.5); WBC 10.2 k/uL (3.8-10.6)
[2023-09-04 09:42] LABS: African American GFR (CKD) >90 (>60 ml/min/1.73 sqM); Anion Gap 12 mmol/L; Blood Urea Nitrogen 13 mg/dL (9-20); Calcium 9.6 mg/dL (8.4-10.2); Carbon Dioxide 22 mmol/L (22-30); Chloride 103 mmol/L (98-107); Glucose 137 mg/dL (74-99); Magnesium 1.9 mg/dL (1.6-2.3); Non-African American GFR(CKD) >90 (>60 ml/min/1.73 sqM); Potassium 4.7 mmol/L (3.5-5.1); Sodium 137 mmol/L (137-145)
--- NOTE | 2023-09-04 11:35 | P.PN ---
Subjective HISTORY OF PRESENT ILLNESS: 09/01/2023 The patient is a 50-year-old male with a history of hypertension who presented with an acute inferior wall myocardial infarction, underwent coronary angiography by Dr. Bran and subsequently stenting of the RCA. He has vague chest discomfort this morning. He is in sinus mechanism, hemodynamically stable. There is no evidence of malignant arrhythmia. He received a 4.0 by 28 mm stent in the proximal RCA. His left coronary system has no significant obstructive disease 09/02/2023 Patient examined this morning at the bedside. Patient currently denies chest pain or pressure. Patient states he had an episode of chest pain earlier this morning. He denies shortness of breath. Echocardiogram completed revealing ejection fraction 55 to 60%, mild MR, mild TR, and mild . Vital signs are stable. Blood pressure 130/76. Yesterday afternoon, the patient developed numbness of his face which is since resolved. Neurology was consulted for evaluation. CT brain completed with no evidence of CVA. CTA also completed with no significant abnormalities noted. Patient is scheduled to undergo MRI of the brain. 09/03/2023 Patient examined this morning at the bedside. Patient currently denies chest pain or pressure. He denies shortness of breath. Vital signs are pending. Blood pressure is stable at 118/68. Telemetry reveals sinus mechanism. MRI is still pending. 09/04/2023 Patient examined this morning at the bedside. Patient currently denies chest pain or pressure. He denies shortness of breath. Vital signs are stable. MRI negative for CVA. He states his facial numbness has resolved. PHYSICAL EXAM: VITAL SIGNS: Reviewed. GENERAL: Well-developed in no acute distress. NECK: Supple. No JVD or thyromegaly LUNGS: Respirations even and unlabored. Lungs essentially clear to auscultation bilaterally. HEART: Regular rate and rhythm. S1 and S2 heard. EXTREMITIES: Normal range of motion. No clubbing or cyanosis. Peripheral pulses intact. No lower extremity edema ASSESSMENT: Acute inferior wall myocardial infarction, status post stenting of the RCA Hypertension Nicotine dependence Mild aortic stenosis Facial numbness, CT negative for CVA, MRI negative PLAN: Continue dual antiplatelet therapy with aspirin and Brilinta for 12 months Continue high intensity statin. LDL goal less than 70. Continue additional cardiac medications Patient is stable for discharge from a cardiac standpoint Patient to follow-up postdischarge with Dr. Bran Nurse practitioner note has been reviewed by physician. Signing provider agrees with the documented findings, assessment, and plan of care documented by PRESS OPERATOR MEAT as a scribe. Objective - Vital Signs Vital signs: Vital Signs Temp 98.2 F 09/04/23 08:18 Pulse 108 H 09/04/23 08:18 Resp 18 09/04/23 08:18 BP 155/91 09/04/23 08:18 Pulse Ox 95 09/04/23 08:18 FiO2 Intake & Output 09/03/23 09/04/23 09/04/23 18:59 06:59 18:59 Intake Total 1078 480 118 Balance 1078 480 118 Intake: Oral 1078 480 118 Other: Voiding Method Urinal Urinal Urinal # Voids 1 2 1 - Labs CBC & Chem 7: 09/04/23 08:53 09/04/23 08:53 Labs: Abnormal Lab Results - Last 24 Hours (Table) 09/03/23 09/03/23 09/03/23 Range/Units 11:37 16:37 20:09 Glucose (74-99) mg/dL POC Glucose (mg/dL) 157 H 174 H 148 H (70-110) mg/dL 09/04/23 09/04/23 Range/Units 06:15 08:53 Glucose 137 H (74-99) mg/dL POC Glucose (mg/dL) 209 H (70-110) mg/dL
[2023-09-04 11:40] LABS: Glucose,Whole Blood 127 mg/dL (70-110)
--- NOTE | 2023-09-04 15:52 | P.DS ---
Providers Date of admission: 08/31/23 14:45 Expected date of discharge: 09/04/23 Attending physician: Emilie Underwood, DO Consults: 08/31/23 14:58 Consult Physician Stat Consulting Provider: Jaya Temple Consult Reason/Comments: stemi Do you want consulting provider notified?: Already Contacted 08/31/23 16:26 Consult Physician Routine Consulting Provider: Jaya Temple Consult Reason/Comments: Post Interventional Patient Do you want consulting provider notified?: Already Contacted 09/01/23 12:49 Consult Physician Routine Consulting Provider: Nj Denis Consult Reason/Comments: CVA Do you want consulting provider notified?: Yes Primary care physician: Stated None Hospital Course: Inferior ST segment elevated myocardial infarction Hypertension Dyslipidemia Anxiety Right-sided facial paresthesias Newly discovered diabetes Nicotine dependency Class III obesity Leukocytosis, resolved Hospital Course: Patient is a 52-year-old male with history of hypertension and tobacco dependency who presented to the emergency department with complaints of chest pain. He was activated as a code STEMI. On arrival vital signs are within normal limits. Patient was taken to [facility] and underwent PCI to the RCA. Initial laboratory analysis included CBC, coags, CMP, and troponin which were remarkable for white blood cell count 14.2, glucose 123, ALT 62, and troponin 0.038. Chest x-ray reviewed low lung volumes with increased pulmonary vascular congestion. After his cath he was admitted to the ICU. He did well after admission, but then developed repeat chest pain and right sided facial numbness on 08/31. At htat time he underwent CT brain which was negative for acute process and CTA head and neck which did not show any acute thrombus. MRI did not demonstrate findings of a CVA. Echocardiogram reviewed: Ejection fraction 55 to 60%, mild aortic stenosis. Grade I diastolic dysfunction. Pt discharged with ASA, brillinta, lisinopril, lipitor. He will f/u with PCP and cardiology. I spent 33 min coordinating this discharge Vital signs reviewed General: Nontoxic, no distress, appears at stated age Cardiovascular: S1S2 reg, no murmur Lungs: CTA bilateral, no rhonchi, no rales, no accessory muscle use Abdominal: Soft, nontender to palpation, no guarding Ext: No gross muscle atrophy, no edema b/l lower extremities, no contractures Neuro: CN II-XI grossly intact, no focal neuro deficits Psych: Alert, oriented, appropriate affect Patient Condition at Discharge: Good Plan - Discharge Summary Discharge Rx Participant: Yes New Discharge Prescriptions: New Aspirin 81 mg PO DAILY #30 tab Ticagrelor [Brilinta] 90 mg PO BID #60 tab Dapagliflozin Propanediol [Farxiga] 5 mg PO DAILY #30 tablet Metoprolol Tartrate [Lopressor] 25 mg PO BID #60 tab Nitroglycerin Sl Tabs [Nitrostat] 0.4 mg SUBLINGUAL Q5M PRN #10 tab PRN Reason: Chest Pain Acetaminophen Tab [Tylenol] 650 mg PO Q6HR PRN tab PRN Reason: Mild Pain Or Fever > 100.5 Atorvastatin [Lipitor] 80 mg PO HS #30 tab lisinopriL [Zestril] 5 mg PO DAILY #30 tab Continue HYDROcodone/APAP 10-325MG [[place] 10-325] 1 tab PO TID PRN PRN Reason: Pain Discontinued lisinopriL [Zestril] 20 mg PO DAILY amLODIPine [Norvasc] 5 mg PO DAILY Meloxicam [Mobic] 15 mg PO DAILY PRN PRN Reason: Pain Discharge Medication List HYDROcodone/APAP 10-325MG [[place] 10-325] 1 tab PO TID PRN 08/31/23 [History] Acetaminophen Tab [Tylenol] 650 mg PO Q6HR PRN tab 09/04/23 [Rx] Aspirin 81 mg PO DAILY #30 tab 09/04/23 [Rx] Atorvastatin [Lipitor] 80 mg PO HS #30 tab 09/04/23 [Rx] Dapagliflozin Propanediol [Farxiga] 5 mg PO DAILY #30 tablet 09/04/23 [Rx] Metoprolol Tartrate [Lopressor] 25 mg PO BID #60 tab 09/04/23 [Rx] Nitroglycerin Sl Tabs [Nitrostat] 0.4 mg SUBLINGUAL Q5M PRN #10 tab 09/04/23 [Rx] Ticagrelor [Brilinta] 90 mg PO BID #60 tab 09/04/23 [Rx] lisinopriL [Zestril] 5 mg PO DAILY #30 tab 09/04/23 [Rx] Follow up Appointment(s)/Referral(s): None,Stated [Primary Care Provider] - 1-2 days Jl Bran MD [STAFF PHYSICIAN] - 1 Week Activity/Diet/Wound Care/Special Instructions: CARDIAC CATH Support your puncture site by applying firm, steady pressure whenever you cough, laugh, sneeze or bear down to have a bowel movement (2-day restriction). Watch for any excessive bruising, active bleeding, a firm knot forming under your skin, extreme tenderness and signs of infection (redness, swelling, fever). Shower daily, do not soak puncture in a tub bath, jacuzzi, pool, davies etc. for 1 week. This is to prevent risk of infection. Drink plenty of fluids the day of and day after your procedure to flush contrast dye out of your kidneys. Take all medications as directed. Never stop any new medication without your physicians OK. No driving for 2 days after procedure. 10- pound weight lifting restriction for 1 week. Low sodium/low fat diet. Activity limited until follow up appointment with your md physician dermatologist. In case of any problems, please call [facility] @ [phone]. Just some important facts for you to know after your stent placement Aspirin as anti-platelet therapy - Aspirin lessens the chance of heart attack and stroke. It helps prevent blood clots from forming, allowing the blood to flow more easily. Each day, you will take one 81 mg (non-enteric coated) tablet daily. Do not stop unless instructed by your doctor. Anti-platelet Therapy. -In addition to aspirin, you will take one additional anti-platelet medication daily. This will help prevent a clot from forming in your stent: Ticagreler (Brillinta) -You will need to take your anti-platelet medicine every day for 12 months -Please consult your heart doctor before you stop this medicine. -They may want you to continue for a longer period of time. Statins -A statin medication lowers cholesterol levels in the blood. This helps slow the progression of heart disease. - Please take your statin medication as prescribed by your doctor. -You may be taking one of the following statins: Rosuvastatin Beta blockers -Your Medication: Metoprolol Is a medication that protects your heart from stress and can prevent future heart attacks. It can slow your heart rate. It can take weeks for your body to get used to a beta bridget. The dose may need to be changed a few times as your body adjusts Angiotensin receptor bridget (ARB) -Your medication: Losartan is an angiotensin receptor bridget in the ER used to reduce cardiovascular events and decrease the risk of developing diabetes, these medications are also known to prevent left ventricular remodeling after you have suffered a myocardial infarction. Do not stop taking these medicines without talking to your doctor. -Take all other medicines as directed by your doctor. Do not take any extra aspirin or ibuprofen. They can increase your risk of bleeding. Many [id number] drugs contain aspirin. If you are unsure about what the drug contains, check with your pharmacist before taking it. -For mild discomfort, you may take plain Tylenol (acetaminophen). Follow dose directions, but do not take more than 4,000 mg of acetaminophen in 24 hours. Contact your doctor right away or go to the nearest hospital Emergency Room if you have: -Severe angina or chest pain. (This may be a sign of a problem with your stent.) -Excessive bruising, blood in urine/stool or black tarry stools. Healthy LifeStyle It is important to keep a heart healthy lifestyle. This can improve your long- term health and decrease your risk for heart attacks. -Managing your blood cholesterol, blood pressure, weight, and stress. -The importance of regular exercise. -Heart Healthy Diet: Include more plants in your diet. Eat lots of fresh vegetab les and fresh fruits. Eat good fats: plant based oils, avocado, nuts, beans, legumes. Eat more seafood. Limit Meat. Switch to whole grains. -Avoid fried foods and animal fats and processed meats Follow up with your PCP and [facility] Thank you for allowing us to participate in your care, it was truly a pleasure having you for our patient!!! Discharge Disposition: HOME SELF-CARE
--- NOTE | 2023-09-08 13:26 | CDI ---
Documentation Clarification Form Date: 09/08/2023 01:05:35 PM From: Rhianna Vicente Phone: Admit Date: 08/31/2023 02:45:00 PM Patient Name: Chava Cadena Visit Number: [id number] Discharge Date: 09/04/2023 12:33:00 PM ATTENTION: The Clinical Documentation Specialists (CDI) and [facility] Coding Staff appreciate your assistance in clarifying documentation. Please respond to the clarification below the line at the bottom and electronically sign. The CDI & [facility] Coding staff will review the response and follow-up if needed. Please note: Queries are made part of the Legal Health Record. If you have any questions, please contact the author of this message via ITS. Dr. Emilie Underwood New onsetdiabetes is documented Progress Note 08/31. Additional specificity regarding the diabetes diagnosis is requested. History/Risk Factors: MS spstenting, HTN, smoker , facialnumbness, HLD, obesity, anxiety Clinical Indicators: Glucose: 08/30 123-130 08/31 111-140 09/01 111-188 09/02 119-174 09/03 137-209 A1C: 6.6 Treatment: Discussed with patient that we will follow his blood sugars during his stay and if they remain decently controlledcould considerweight lossand dietary modifications, however if they are increasing could consider medication such as metformin or Farxiga. Patient is in agreement. Sliding scale insulin. Follow blood sugars Please clarify the type of diabetes, if known: [ x ] Diabetes Type 2 with hyperglycemia [ ] Other, please specify [ ] Unable to Determine (Template Last Revised: July 2020) MTDD
== END 2023-09-04 12:33 | disposition home or self-care (01) | DRG 174 ==
LOC: EC 14:29 → 2SICU 14:45 → 3SCARD 09-01 17:13
PROVIDERS: ADMIT Internal Medicine; ATTEND Internal Medicine
PROC: 027034Z Dilation of Coronary Artery, One Artery with Drug-eluting Intraluminal Device, Percutaneous Approach (ICD-10-PCS; principal; 2023-08-31 14:53)
PROC: 4A023N7 Measurement of Cardiac Sampling and Pressure, Left Heart, Percutaneous Approach (ICD-10-PCS; 2023-08-31 14:53)
PROC: B2111ZZ Fluoroscopy of Multiple Coronary Arteries using Low Osmolar Contrast (ICD-10-PCS; 2023-08-31 14:53)
PROC: B240ZZ3 Ultrasonography of Single Coronary Artery, Intravascular (ICD-10-PCS; 2023-08-31 14:53)
DX: I21.19 ST elevation (STEMI) myocardial infarction involving other coronary artery of inferior wall (principal); I25.119 Atherosclerotic heart disease of native coronary artery with unspecified angina pectoris; E11.65 Type 2 diabetes mellitus with hyperglycemia; E66.01 Morbid (severe) obesity due to excess calories; Z68.41 Body mass index [BMI] 40.0-44.9, adult; I11.9 Hypertensive heart disease without heart failure; I69.313 Psychomotor deficit following cerebral infarction; I35.0 Nonrheumatic aortic (valve) stenosis; E78.5 Hyperlipidemia, unspecified; F17.210 Nicotine dependence, cigarettes, uncomplicated; F41.9 Anxiety disorder, unspecified; R20.2 Paresthesia of skin; D72.828 Other elevated white blood cell count; Z79.1 Long term (current) use of non-steroidal anti-inflammatories (NSAID); Z79.899 Other long term (current) drug therapy; Z88.0 Allergy status to penicillin
CPT/HCPCS: 70450; 70496; 70498; 70551; 71045; 80048; 80053; 80061; 80306; 83036; 83735; 84484; 85025; 85027; 85610; 85730; 92978; 93306; 93454; 94760; 96374; 99285

== ENCOUNTER → 2023-09-22 | Outpatient (CLI) | payer BC ==
[2023-09-22 15:57] LABS: ALT 56 U/L (10-49); AST 40 U/L (14-35); Chol/HDL Ratio 3.56 Ratio; LDL Cholesterol,Calculated 63.4 mg/dL (0.0-131.0)
== END | disposition home or self-care (01) ==
LOC: LABWHC1 09:32
PROVIDERS: ATTEND Internal Medicine Cardiovascular Disease
DX: E78.2 Mixed hyperlipidemia (principal)
CPT/HCPCS: 36415; 80061; 84450; 84460

== ENCOUNTER 2023-10-16 09:14 | Observation (INO) | payer BC, OTHER ==
[2023-10-16] MEDS: NITROGLYCERIN SL TABS 0.4 MG TAB SUBLINGUAL STA (09:27)
[2023-10-16] MEDS: SODIUM CHLORIDE 0.9% 1,000 ML IV STA (09:27)
[2023-10-16] MEDS: ONDANSETRON 4 MG/2 ML VIAL IVP STA (09:29)
[2023-10-16 09:57] LABS: Basophils % (A) 1 %; Eosinophils # (A) 0.2 k/uL (0-0.7); Eosinophils % (A) 2 %; HCT 45.5 % (39.0-53.0); HGB 15.1 gm/dL (13.0-17.5); Lymphocytes # (A) 1.7 k/uL (1.0-4.8); Lymphocytes % (A) 24 %; MCH 30.7 pg (25.0-35.0); MCHC 33.1 g/dL (31.0-37.0); MCV 92.5 fL (80.0-100.0); Mean Platelet Volume 8.3; Monocytes # (A) 0.6 k/uL (0-1.0); Monocytes % (A) 8 %; Neutrophils # (A) 4.4 k/uL (1.3-7.7); Neutrophils % (A) 63 %; Platelet Count 214 k/uL (150-450); RBC 4.92 m/uL (4.30-5.90); RDW 13.7 % (11.5-15.5)
--- NOTE | 2023-10-16 09:59 | XR ---
EXAMINATION TYPE: XR chest 2V DATE OF EXAM: 10/16/2023 COMPARISON: 08/31/2023 TECHNIQUE: PA and lateral views submitted. HISTORY: Chest pain FINDINGS: The lungs are clear and there is no pneumothorax, pleural effusion, or focal pneumonia. Heart size normal and no overt failure. Osseous structures demonstrate hypertrophic and degenerative changes of the spine. AC joint arthropathy. Mild hyperinflation correlate for COPD. IMPRESSION: 1. No acute process.
[2023-10-16 10:03] LABS: INR 0.9 (<1.2); Partial Thromboplastin Time 24.5 sec (22.0-30.0); Prothrombin Time 10.5 sec (10.0-12.5)
[2023-10-16 10:31] LABS: ALT 40 U/L (4-49); AST 30 U/L (17-59); African American GFR (CKD) >90 (>60 ml/min/1.73 sqM); Alkaline Phosphatase 93 U/L (38-126); Anion Gap 8 mmol/L; Blood Urea Nitrogen 10 mg/dL (9-20); Calcium 8.8 mg/dL (8.4-10.2); Carbon Dioxide 21 mmol/L (22-30); Chloride 108 mmol/L (98-107); Glucose 121 mg/dL (74-99); Lipase 136 U/L (23-300); Magnesium 1.9 mg/dL (1.6-2.3); Non-African American GFR(CKD) >90 (>60 ml/min/1.73 sqM); Potassium 4.1 mmol/L (3.5-5.1); Sodium 137 mmol/L (137-145); Total Bilirubin 0.7 mg/dL (0.2-1.3); Total Protein 6.9 g/dL (6.3-8.2)
[2023-10-16] MEDS: NITROGLYCERIN OINT 1 INCH/GM PACKET TOPICAL SCH (10:37)
[2023-10-16 10:39] LABS: NT-Pro-B-Type Natriuretic Pept 65 pg/mL
--- NOTE | 2023-10-16 10:46 | ED ---
General Adult HPI - General Chief complaint: Chest Pain Stated complaint: chest pain Time Seen by Provider: 10/16/23 09:15 Source: patient, EMS, RN notes reviewed, old records reviewed Mode of arrival: EMS Limitations: no limitations - History of Present Illness Initial comments: Patient is a 53-year-old male who presents emergency department complaining of chest pain. Has a history of cardiac stent placed within the last few months. States he awoke this morning and began having worsening chest pain. Describes the pain as pressure sensation over the middle of his chest with radiation to the jaw. States this lasted at home for an undisclosed time. Started proximately 45 minutes prior to arrival. He took 3 of his home nitro with im provement in symptoms. States he is now a 4-5 out of 10. Denies any other symptoms. Only the chest pressure at this time. Presents for further evaluation. Follows up with Dr. Lee of cardiology. - Related Data Home Medications Medication Instructions Recorded Confirmed HYDROcodone/APAP 10-325MG [[place] 1 tab PO TID PRN 08/31/23 10/16/23 10-325] Naloxone HCl [Narcan] 4 mg NASAL ONCE PRN 10/16/23 10/16/23 Previous Rx's Medication Instructions Recorded Acetaminophen Tab [Tylenol] 650 mg PO Q6HR PRN tab 09/04/23 Aspirin 81 mg PO DAILY #30 tab 09/04/23 Atorvastatin [Lipitor] 80 mg PO HS #30 tab 09/04/23 Dapagliflozin Propanediol [Farxiga] 5 mg PO DAILY #30 tablet 09/04/23 Metoprolol Tartrate [Lopressor] 25 mg PO BID #60 tab 09/04/23 Nitroglycerin Sl Tabs [Nitrostat] 0.4 mg SUBLINGUAL Q5M PRN #10 tab 09/04/23 Ticagrelor [Brilinta] 90 mg PO BID #60 tab 09/04/23 lisinopriL [Zestril] 5 mg PO DAILY #30 tab 09/04/23 Allergies Allergy/AdvReac Type Severity Reaction Status Date / Time Penicillins Allergy Swelling Verified 10/16/23 10:25 Review of Systems ROS Statement: Those systems with pertinent positive or pertinent negative responses have been documented in the HPI. Review of Systems: CONST: Denies fever EYES: Denies blurry vision ENT: Denies nasal congestion C/V: Endorses chest pain RESP: Denies shortness of breath GI: Denies abdominal pain : Denies dysuria SKIN: Denies rash. MSK: Denies joint pain. NEURO: Denies headache ROS Other: All systems not noted in ROS Statement are negative. Past Medical History Past Medical History: Chest Pain / Angina, Hypertension, Myocardial Infarction (MA) Last Myocardial Infarction Date:: 08/31/23 History of Any Multi-Drug Resistant Organisms: None Reported Past Surgical History: No Surgical Hx Reported Smoking Status: Current every day smoker Past Alcohol Use History: None Reported Past Drug Use History: None Reported General Exam - General Exam Comments Initial Comments: General: Appears in no acute distress. HEAD: Normal with no signs of head trauma. EYES: PERRLA, EOMI, conjunctiva normal, no discharge. ENT: Hearing grossly intact, normal oropharynx. RESPIRATORY: Clear breath sounds bilaterally. No wheezes, rales, or rhonchi. C/V: Regular rate and rhythm. S1 and S2 auscultated, no edema, peripheral pulses 2+ and intact throughout ABD: Abd is soft, nontender, nondistended EXT: Normal range of motion, no obvious deformity SKIN: No rashes or lesions observed on exposed skin. NEURO: Alert and oriented x 4. Cranial nerves II-XII intact. No focal sensory or strength deficits. Limitations: no limitations Course Vital Signs 10/16/23 10/16/23 10/16/23 09:16 09:59 11:20 Pulse Rate 74 67 62 Respiratory 18 18 18 Rate Blood Pressure 143/99 121/84 120/69 O2 Sat by Pulse 97 96 97 Oximetry 10/16/23 12:21 Pulse Rate 64 Respiratory 20 Rate Blood Pressure 144/73 O2 Sat by Pulse 96 Oximetry Medical Decision Making - Medical Decision Making Was pt. sent in by a medical professional or institution (, PA, POSTIE, urgent care, hospital, or penitentiary...) When possible be specific @ -No Did you speak to anyone other than the patient for history (EMS, parent, family, police, friend...)? What history was obtained from this source @ -No Did you review nursing and triage notes (agree or disagree)? Why? @ -I reviewed and agree with nursing and triage notes Were old charts reviewed (outside hosp., previous admission, EMS record, old EKG , old radiological studies, urgent care reports/EKG's, penitentiary records)? Report findings @ -Reviewed cath report and previous EKGs from RCA stenting in August 2023. EKG remains unchanged from discharge EKG. Differential Diagnosis (chest pain, altered mental status, abdominal pain women, abdominal pain men, vaginal bleeding, weakness, fever, dyspnea, syncope, headache, dizziness, GI bleed, back pain, seizure, CVA, palpatations, mental health, musculoskeletal)? @ -Differential Chest Pain: Stable Angina, Unstable Angina, STEMI, NSTEMI Aortic Dissection, Pneumothorax, Musculoskeletal, Esophageal Spasm GERD, Cholecystitis, Pancreatitis, Zoster, this is not meant to be an all-inclusive list. EKG interpreted by me (3pts min.). @ -As above X-rays interpreted by me (1pt min.). @ -Chest x-ray shows no obvious acute cardiopulmonary process. CT interpreted by me (1pt min.). @ -None done U/S interpreted by me (1pt. min.). @ -None done What testing was considered but not performed or refused? (CT, X-rays, U/S, labs)? Why? @ -None What meds were considered but not given or refused? Why? @ -None Did you discuss the management of the patient with other professionals (professionals i.e. , PA, POSTIE, lab, RT, psych nurse, social scientist, paleology teacher, teacher, duty officer, case resolution specialist)? Give summary @ -I spoke with the admitting physician, city call Dr. Trevino of [facility] who accepted the admission. Was smoking cessation discussed for >3mins.? @ -No Was critical care preformed (if so, how long)? @ -No Were there social determinants of health that impacted care today? How? (Homeles sness, low income, unemployed, alcoholism, drug addiction, transportation, low edu. Level, literacy, decrease access to med. care, longterm, rehab)? @ -No Was there de-escalation of care discussed even if they declined (Discuss DNR or withdrawal of care, Hospice)? DNR status @ -No What co-morbidities impacted this encounter? (DM, HTN, Smoking, COPD, CAD, Cancer, CVA, ARF, Chemo, Hep., AIDS, mental health diagnosis, sleep apnea, morbid obesity)? @ -None Was patient admitted / discharged? Hospital course, mention meds given and route, prescriptions, significant lab abnormalities, going to OR and other pertinent info. @ -Based on the patient's presentation and physical exam, presents emergency department chest pain. Atypical in nature. Patient will be administered additional nitroglycerin tablets. EMS provided the patient with 324 mg of aspirin. Vital signs within acceptable limits. Patient was in agreement this plan. EKG shows no signs of acute ischemia. Laboratory studies unremarkable including undetectable troponin. Chest x-ray unremarkable. On reevaluation, nitroglycerin eliminated the patient's pain. Is now a 0-1 out of 10. Nitropaste was applied. He will be admitted to cardiac labs. Patient in agreement this plan. Cardiology consulted. Per patient he had recent echo and therefore this was not ordered for the patient. I spoke with the admitting physician, city call Dr. Trevino of [facility] who accepted the admission. Undiagnosed new problem with uncertain prognosis? @ -No Drug Therapy requiring intensive monitoring for toxicity (Heparin, Nitro, Insulin, Cardizem)? @ -No Were any procedures done? @ -No Diagnosis/symptom? @ -Chest pain Acute, or Chronic, or Acute on Chronic? @ -Acute Uncomplicated (without systemic symptoms) or Complicated (systemic symptoms)? @ -Complicated Side effects of treatment? @ -No Exacerbation, Progression, or Severe Exacerbation? @ -No Poses a threat to life or bodily function? How? (Chest pain, [place], MA, pneumonia, PE, COPD, DKA, ARF, appy, cholecystitis, CVA, Diverticulitis, Homicidal, Suicidal, threat to staff... and all critical care pts) @ -Yes - Lab Data Result diagrams: 10/16/23 09:32 10/16/23 10:02 Lab Results 10/16/23 10/16/23 10/16/23 Range/Units 09:32 09:32 10:02 WBC 7.0 (3.8-10.6) k/uL RBC 4.92 (4.30-5.90) m/uL Hgb 15.1 (13.0-17.5) gm/dL Hct 45.5 (39.0-53.0) % MCV 92.5 (80.0-100.0) fL MCH 30.7 (25.0-35.0) pg MCHC 33.1 (31.0-37.0) g/dL RDW 13.7 (11.5-15.5) % Plt Count 214 (150-450) k/uL MPV 8.3 Neutrophils % 63 % Lymphocytes % 24 % Monocytes % 8 % Eosinophils % 2 % Basophils % 1 % Neutrophils # 4.4 (1.3-7.7) k/uL Lymphocytes # 1.7 (1.0-4.8) k/uL Monocytes # 0.6 (0-1.0) k/uL Eosinophils # 0.2 (0-0.7) k/uL Basophils # 0.0 (0-0.2) k/uL PT 10.5 (10.0-12.5) sec INR 0.9 (<1.2) APTT 24.5 (22.0-30.0) sec Sodium 137 (137-145) mmol/L Potassium 4.1 (3.5-5.1) mmol/L Chloride 108 H (98-107) mmol/L Carbon Dioxide 21 L (22-30) mmol/L Anion Gap 8 mmol/L BUN 10 (9-20) mg/dL Creatinine 0.72 (0.66-1.25) mg/dL Est GFR (CKD-EPI)AfAm >90 (>60 ml/min/1.73 sqM) Est GFR (CKD-EPI)NonAf >90 (>60 ml/min/1.73 sqM) Glucose 121 H (74-99) mg/dL Calcium 8.8 (8.4-10.2) mg/dL Magnesium 1.9 (1.6-2.3) mg/dL Total Bilirubin 0.7 (0.2-1.3) mg/dL AST 30 (17-59) U/L ALT 40 (4-49) U/L Alkaline Phosphatase 93 (38-126) U/L Troponin I (0.000-0.034) ng/mL NT-Pro-B Natriuret Pep 65 pg/mL Total Protein 6.9 (6.3-8.2) g/dL Albumin 4.0 (3.5-5.0) g/dL Lipase 136 (23-300) U/L 10/16/23 Range/Units 10:02 WBC (3.8-10.6) k/uL RBC (4.30-5.90) m/uL Hgb (13.0-17.5) gm/dL Hct (39.0-53.0) % MCV (80.0-100.0) fL MCH (25.0-35.0) pg MCHC (31.0-37.0) g/dL RDW (11.5-15.5) % Plt Count (150-450) k/uL MPV Neutrophils % % Lymphocytes % % Monocytes % % Eosinophils % % Basophils % % Neutrophils # (1.3-7.7) k/uL Lymphocytes # (1.0-4.8) k/uL Monocytes # (0-1.0) k/uL Eosinophils # (0-0.7) k/uL Basophils # (0-0.2) k/uL PT (10.0-12.5) sec INR (<1.2) APTT (22.0-30.0) sec Sodium (137-145) mmol/L Potassium (3.5-5.1) mmol/L Chloride (98-107) mmol/L Carbon Dioxide (22-30) mmol/L Anion Gap mmol/L BUN (9-20) mg/dL Creatinine (0.66-1.25) mg/dL Est GFR (CKD-EPI)AfAm (>60 ml/min/1.73 sqM) Est GFR (CKD-EPI)NonAf (>60 ml/min/1.73 sqM) Glucose (74-99) mg/dL Calcium (8.4-10.2) mg/dL Magnesium (1.6-2.3) mg/dL Total Bilirubin (0.2-1.3) mg/dL AST (17-59) U/L ALT (4-49) U/L Alkaline Phosphatase (38-126) U/L Troponin I <0.012 (0.000-0.034) ng/mL NT-Pro-B Natriuret Pep pg/mL Total Protein (6.3-8.2) g/dL Albumin (3.5-5.0) g/dL Lipase (23-300) U/L - EKG Data -: EKG Interpreted by Me EKG Comments: 12-lead Electrocardiogram Interpretation Note EKG was reviewed and interpreted by myself. 12-lead ECG performed at 0916 is interpreted by me as revealing normal sinus rhythm at a rate of 75 beats per minute. [place] is rightward deviated. PA interval is 217 ms, QRS durations 109 ms, QTc is 411 ms.. There were no ST or T wave abnormalities to suggest myocardial ischemia or injury. R wave progression across the precordium was satisfactory. By my interpretation this EKG is non-diagnostic for acute ischemia. Compared with EKG from September 05, 2023 showed no obvious acute change. Disposition Clinical Impression: Chest pain Disposition: ADMITTED IP TO THIS HOSP Condition: Stable Time of Disposition: 10:46
[2023-10-16] MEDS ORDERED: NALOXONE 0.4 MG/ML 1 ML VIAL IV PRN (10:47)
[2023-10-16] MEDS ORDERED: ONDANSETRON 4 MG/2 ML VIAL IVP PRN (10:47)
[2023-10-16] MEDS: SODIUM CHLORIDE 0.9% 1,000 ML IV SCH (11:20)
[2023-10-16] MEDS: HEPARIN SODIUM,PORCINE 5,000 UNIT/ML 1 ML VIAL SQ SCH (16:39)
[2023-10-16] MEDS ORDERED: ACETAMINOPHEN TAB 325 MG TAB PO PRN (18:24)
[2023-10-16] MEDS: METOPROLOL TARTRATE 25 MG TAB PO SCH (20:06)
[2023-10-16] MEDS: TICAGRELOR 90 MG TAB PO SCH (20:06)
[2023-10-16] MEDS: ATORVASTATIN 80 MG TAB PO SCH (20:06)
[2023-10-16] MEDS: HYDROcodone/APAP 10-325MG 1 EACH TAB PO PRN (22:36)
--- NOTE | 2023-10-16 23:05 | P.HPIM ---
History of Present Illness H&P Date: 10/16/23 Chief Complaint: Chest pain Patient is a 53-year-old male with a past medical history of coronary artery disease status post stent to RCA on 08/31/2023, hypertension, diabetes type 2 ongoing nicotine addiction and mild aortic stenosis presents to ER with complaints of chest pain. Patient states that he started having chest pain this morning mainly in the epigastric region and midsternal region with dry heaves and mild jaw pain which she experienced during previous MT few months ago. He felt nauseous and also diaphoretic. He did take nitroglycerin sublingual x 3 which seemed to improve his pain. Pain lasted about half an hour.Mild shortness of breath associated. Denies any fever or chills. No cough or sputum production. No abdominal pain or diarrhea. No dysuria or hematuria. Laboratory data showed WBC 7.0 hemoglobin 15.1 and platelets 214 Sodium 137 potassium 4.1 chloride 108 bicarb is 21 BUN 10 and creatinine 0.17 blood sugar 121 Troponin x 2 negative liver enzymes not elevated magnesium 1.9 and lipase 136. Review of Systems Constitutional: Patient denies any fever or chills . No generalized weakness or weight loss. Abdomen: Patient denied nausea vomiting and diarrhea and abdominal pain. Cardiovascular: Patient does have epigastric chest pain with dry heaves. No shortness of breath. No palpitations. No leg swelling Respiratory: patient denied any cough or sputum production. No shortness of breath Neurologic: Patient denied any numbness or tingling. no headache. Musculoskeletal: Patient denies any complaints of joint swelling or deformity. Skin: Negative Psychiatric: Negative Endocrine: No heat or cold intolerance. No recent weight gain. Genitourinary: No dysuria or hematuria. All other 14 point ROS negative except the above Past Medical History Past Medical History: Chest Pain / Angina, Hypertension, Myocardial Infarction ([place]) Last Myocardial Infarction Date:: 08/31/23 History of Any Multi-Drug Resistant Organisms: None Reported Past Surgical History: No Surgical Hx Reported Smoking Status: Current every day smoker Past Alcohol Use History: None Reported Past Drug Use History: None Reported Medications and Allergies Home Medications Medication Instructions Recorded Confirmed Type HYDROcodone/APAP 10-325MG [[place] 1 tab PO TID PRN 08/31/23 10/16/23 History 10-325] Acetaminophen Tab [Tylenol] 650 mg PO Q6HR PRN tab 09/04/23 10/16/23 Rx Aspirin 81 mg PO DAILY #30 tab 09/04/23 10/16/23 Rx Atorvastatin [Lipitor] 80 mg PO HS #30 tab 09/04/23 10/16/23 Rx Dapagliflozin Propanediol [Farxiga] 5 mg PO DAILY #30 tablet 09/04/23 10/16/23 Rx Metoprolol Tartrate [Lopressor] 25 mg PO BID #60 tab 09/04/23 10/16/23 Rx Nitroglycerin Sl Tabs [Nitrostat] 0.4 mg SUBLINGUAL Q5M PRN #10 tab 09/04/23 10/16/23 Rx Ticagrelor [Brilinta] 90 mg PO BID #60 tab 09/04/23 10/16/23 Rx lisinopriL [Zestril] 5 mg PO DAILY #30 tab 09/04/23 10/16/23 Rx Naloxone HCl [Narcan] 4 mg NASAL ONCE PRN 10/16/23 10/16/23 History Allergies Allergy/AdvReac Type Severity Reaction Status Date / Time Penicillins Allergy Swelling Verified 10/16/23 10:25 Physical Exam Vitals: Vital Signs Pulse Resp BP Pulse Ox 10/16/23 12:21 64 20 144/73 96 10/16/23 11:20 62 18 120/69 97 10/16/23 09:59 67 18 121/84 96 10/16/23 09:16 74 18 143/99 97 Intake and Output 10/16/23 10/16/23 10/16/23 06:59 14:59 22:59 Other: Weight 145.15 kg PHYSICAL EXAMINATION: Patient is lying in the bed comfortably, no acute distress, awake alert and oriented.. HEENT: Normocephalic. Neck is supple. Pupils reactive. Nostrils clear. Oral cavity is moist. Neck reveals no JVD, carotid bruits, or thyromegaly. CHEST EXAMINATION: Trachea is central. Symmetrical expansion. Lung muir clear to auscultation and percussion. CARDIAC: Normal S1, S2 with no gallops. No murmurs ABDOMEN: Soft. Bowel sounds normal. No organomegaly. No abdominal bruits. Extremities: reveal no edema. No clubbing or cyanosis Neurologically awake, alert, oriented x3 with well-coordinated movements. No focal deficits noted Skin: No rash or skin lesions. Psychiatric: Coperative. Nonsuicidal Musculoskeletal: No joint swelling or deformity. Normal range of motion. Results CBC & Chem 7: 10/17/23 06:45 10/17/23 06:45 Labs: Abnormal Lab Results - Last 24 Hours (Table) 10/16/23 Range/Units 10:02 Chloride 108 H (98-107) mmol/L Carbon Dioxide 21 L (22-30) mmol/L Glucose 121 H (74-99) mg/dL Thrombosis Risk Factor Assmnt - DVT/VTE Prophylaxis DVT/VTE Prophylaxis: Pharmacologic Prophylaxis ordered Assessment and Plan Assessment: Chest pain. Rule out ACS. Patient had a similar symptoms when he had MT in August 2023 Coronary artery disease with history of stent placement to RCA on 08/31/2023 Hypertension Diabetes type 2 with A1c 6.6 during recent admission History of MT Current everyday smoker Obesity BMI 40.0 DVT prophylax with heparin subcu Plan: Patient will be continued on telemonitoring. Serial EKG and troponin x 3. Continue with aspirin, Brilinta, statins and metoprolol. Patient is also on lisinopril. Continue with Farxiga. Cardiology was consulted for evaluation. Smoking cessation has been counseled extensively. Time with Patient: Greater than 30
[2023-10-16] MEDS: FAMOTIDINE 20 MG TAB PO SCH (23:17)
[2023-10-17] MEDS ORDERED: NITROGLYCERIN SL TABS 0.4 MG TAB SUBLINGUAL PRN (08:23)
[2023-10-17] MEDS ORDERED: ALPRAZolam 0.25 MG TAB PO PRN (08:23)
[2023-10-17] MEDS ORDERED: ALPRAZolam 0.5 MG TAB PO PRN (08:23)
[2023-10-17] MEDS: lisinopriL 5 MG TAB PO SCH (08:46)
[2023-10-17] MEDS: ASPIRIN 81 MG PO SCH (08:49)
[2023-10-17] MEDS: ATORVASTATIN 80 MG TAB PO STA (08:53)
[2023-10-17] MEDS: ASPIRIN 325 MG TAB PO STA (08:53)
[2023-10-17 10:29] LABS: Basophils # (A) 0.04 X 10*3/uL (0.00-0.10); Basophils % (A) 0.7 %; Eosinophils # (A) 0.21 X 10*3/uL (0.04-0.35); Eosinophils % (A) 3.5 %; HCT 42.8 % (39.6-50.0); HGB 14.2 g/dL (13.0-17.0); Lymphocytes # (A) 2.04 X 10*3/uL (0.90-5.00); Lymphocytes % (A) 34.2 %; MCH 30.8 pg (27.0-32.0); MCHC 33.2 g/dL (32.0-37.0); MCV 92.8 FL (80.0-97.0); Mean Platelet Volume 10.4 FL (9.5-12.2); Monocytes # (A) 0.55 X 10*3/uL (0.20-1.00); Monocytes % (A) 9.2 %; NRBC Per 100 WBC 0 X 10*3/uL (0.00-0.01); Neutrophils % (A) 52.1 %; Platelet Count 201 X 10*3/uL (140-440); RBC 4.61 X 10*6/uL (4.40-5.60); RDW 13.2 % (11.5-14.5); WBC 5.96 X 10*3/uL (4.50-10.00)
--- NOTE | 2023-10-17 10:29 | P.CRDCN ---
History of Present Illness History of present illness: This is Dr. Lopez dictating a consult on this patient The patient was interviewed and examined IMPRESSION / ASSESSMENT: Chest discomfort that reminded him of the same discomfort he experienced when he had his acute myocardial infarction about 4 to 6 weeks back The pain was relieved with 3 nitroglycerin He was experiencing chest discomfort when he first met the ER physician and his EKG was completely normal without any ischemic changes Subsequently 3 cardiac enzymes have been completely normal He is states he is compliant with his medical treatment 2 weeks back he had a stress test in the office and met Dr. Lee and the stress test was normal PLAN: I would recommend coronary angiography at this point. This can be done at any point prior to discharge Continue cardiac medications continue anode atherosclerotic medications Schedule coronary angiogram with Dr. Lee on Friday to evaluate the epicardial coronary arteries HPI Patient presented with chest discomfort. He describes a pressure sensation in the middle of the chest that radiates to the jaw and it lasted for approximately 45 minutes He took 3 nitroglycerin and he stated it helped He states it feels exactly like the pain he experienced when he came in with an [place] When he came to the ER he described a pain of 4-5 out of 10 but his EKG is completely normal and since then he has had 3 normal cardiac enzymes His blood pressure has been at the upper limits of normal mildly elevated He states he has been compliant with his medications including dual antiplatelet therapy ROS: No fever chills or rigors, no cough, phlegm or expectoration, no nausea, vomiting or diarrhea, no hematuria, dysuria, no musculoskeletal complaints, no strokes or seizures, no skin lesions. EXAMINATION: Heart rate in 60s and 70s afebrile Blood pressure 138/85 mmHg Heart sounds are normal normal S1 normal S2 no murmurs gallops or rubs Breath sounds are clear no rhonchi no crackles REVIEW OF LABS, ECG & MEDICAL DATA Normal twelve-lead EKG. No evidence for ischemia Normal cardiac enzymes x 3 Normal hemoglobin Past Medical History Past Medical History: Chest Pain / Angina, Hypertension, Myocardial Infarction ([place]) Last Myocardial Infarction Date:: 08/31/23 History of Any Multi-Drug Resistant Organisms: None Reported Past Surgical History: No Surgical Hx Reported Smoking Status: Current every day smoker Past Alcohol Use History: None Reported Past Drug Use History: None Reported Medications and Allergies Home Medications Medication Instructions Recorded Confirmed Type HYDROcodone/APAP 10-325MG [[place] 1 tab PO TID PRN 08/31/23 10/16/23 History 10-325] Acetaminophen Tab [Tylenol] 650 mg PO Q6HR PRN tab 09/04/23 10/16/23 Rx Aspirin 81 mg PO DAILY #30 tab 09/04/23 10/16/23 Rx Atorvastatin [Lipitor] 80 mg PO HS #30 tab 09/04/23 10/16/23 Rx Dapagliflozin Propanediol [Farxiga] 5 mg PO DAILY #30 tablet 09/04/23 10/16/23 Rx Metoprolol Tartrate [Lopressor] 25 mg PO BID #60 tab 09/04/23 10/16/23 Rx Nitroglycerin Sl Tabs [Nitrostat] 0.4 mg SUBLINGUAL Q5M PRN #10 tab 09/04/23 10/16/23 Rx Ticagrelor [Brilinta] 90 mg PO BID #60 tab 09/04/23 10/16/23 Rx lisinopriL [Zestril] 5 mg PO DAILY #30 tab 09/04/23 10/16/23 Rx Naloxone HCl [Narcan] 4 mg NASAL ONCE PRN 10/16/23 10/16/23 History Allergies Allergy/AdvReac Type Severity Reaction Status Date / Time Penicillins Allergy Swelling Verified 10/16/23 10:25 Physical Exam Vitals: Vital Signs Temp Pulse Pulse Pulse Resp BP BP 10/17/23 07:00 98.6 F 71 71 126/75 10/17/23 02:11 98.2 F 64 15 131/74 10/16/23 18:59 98.5 F 71 15 135/69 10/16/23 18:00 97.7 F 67 138/85 10/16/23 15:40 97.8 F 63 18 147/86 10/16/23 12:21 64 20 144/73 10/16/23 11:20 62 18 120/69 Pulse Ox 10/17/23 07:00 96 10/17/23 02:11 97 10/16/23 18:59 95 10/16/23 18:00 10/16/23 15:40 96 10/16/23 12:21 96 10/16/23 11:20 97 Intake and Output 10/16/23 10/17/23 10/17/23 22:59 06:59 14:59 Other: # Voids 1 2 Weight 145.15 kg Results 10/16/23 09:32 10/16/23 10:02 Cardiac Enzymes 10/16/23 10/16/23 10/16/23 Range/Units 10:02 10:02 12:57 AST 30 (17-59) U/L Troponin I <0.012 <0.012 (0.000-0.034) ng/mL 10/16/23 Range/Units 14:36 AST (17-59) U/L Troponin I <0.012 (0.000-0.034) ng/mL Comprehensive Metabolic Panel 10/16/23 Range/Units 10:02 Sodium 137 (137-145) mmol/L Potassium 4.1 (3.5-5.1) mmol/L Chloride 108 H (98-107) mmol/L Carbon Dioxide 21 L (22-30) mmol/L BUN 10 (9-20) mg/dL Creatinine 0.72 (0.66-1.25) mg/dL Glucose 121 H (74-99) mg/dL Calcium 8.8 (8.4-10.2) mg/dL AST 30 (17-59) U/L ALT 40 (4-49) U/L Alkaline Phosphatase 93 (38-126) U/L Total Protein 6.9 (6.3-8.2) g/dL Albumin 4.0 (3.5-5.0) g/dL Current Medications Generic Name Dose Route Start Last Admin Trade Name Freq PRN Reason Stop Dose Admin Acetaminophen 650 mg 10/16/23 18:24 Acetaminophen Tab 325 Mg Tab PO Q6HR PRN Mild Pain or Fever > 100.5 Hydrocodone Bitart/Acetaminophen 1 each 10/16/23 18:24 10/16/23 22:36 Hydrocodone/Apap 10-325mg 1 Each Tab PO 1 each TID PRN Administration Pain Alprazolam 0.25 mg 10/17/23 08:23 Alprazolam 0.25 Mg Tab PO Q6HR PRN Mild Anxiety Alprazolam 0.5 mg 10/17/23 08:23 Alprazolam 0.5 Mg Tab PO Q6HR PRN Moderate Anxiety Aspirin 81 mg 10/17/23 09:00 10/17/23 08:49 Aspirin 81 Mg PO Not Given DAILY DALIA Atorvastatin Calcium 80 mg 10/16/23 21:00 10/16/23 20:06 Atorvastatin 80 Mg Tab PO 80 mg HS DALIA Administration Dapagliflozin 5 mg 10/17/23 09:00 Dapagliflozin Propanediol 5 Mg Tablet PO DAILY [facility] Famotidine 20 mg 10/16/23 23:15 10/17/23 08:46 Famotidine 20 Mg Tab PO 20 mg BID DALIA Administration Heparin Sodium (Porcine) 5,000 unit 10/16/23 16:00 10/17/23 08:54 Heparin Sodium,Porcine 5,000 Unit/Ml 1 Ml Vial SQ 5,000 unit Q8HR DALIA Administration Sodium Chloride 1,000 mls @ 75 mls/hr 10/16/23 11:00 10/17/23 02:15 Saline 0.9% IV 75 mls/hr .[id number] DALIA Administration Heparin Sodium (Porcine) 10, 1,001 mls @ 999 mls/hr 10/18/23 07:00 000 unit/ Sodium Chloride IRRIGATION 10/18/23 23:00 ONCE PRN INTRA-OP Heparin Sodium (Porcine) 2,500 250.5 mls @ 250 mls/hr 10/18/23 07:00 unit/ Sodium Chloride IRRIGATION 10/18/23 23:00 ONCE PRN INTRA-OP Lisinopril 5 mg 10/17/23 09:00 10/17/23 08:46 Lisinopril 5 Mg Tab PO 5 mg DAILY DALIA Administration Metoprolol Tartrate 25 mg 10/16/23 21:00 10/17/23 08:46 Metoprolol Tartrate 25 Mg Tab PO 25 mg BID DALIA Administration Naloxone HCl 0.2 mg 10/16/23 10:47 Naloxone 0.4 Mg/Ml 1 Ml Vial IV Q2M PRN Opioid Reversal Nitroglycerin 0.4 mg 10/17/23 08:23 Nitroglycerin Sl Tabs 0.4 Mg Tab SUBLINGUAL Q5M PRN Chest Pain Ondansetron HCl 4 mg 10/16/23 10:47 Ondansetron 4 Mg/2 Ml Vial IVP Q8HR PRN Nausea And Vomiting Ticagrelor 90 mg 10/16/23 21:00 10/16/23 20:06 Ticagrelor 90 Mg Tab PO 90 mg BID DALIA Administration Intake and Output 10/16/23 10/17/23 10/17/23 22:59 06:59 14:59 Other: # Voids 1 2 Weight 145.15 kg 10/16/23 09:32 10/16/23 10:02
[2023-10-17 10:39] LABS: ALT 47 U/L (10-49); AST 30 U/L (14-35); Albumin 4.2 g/dL (3.8-4.9); Alkaline Phosphatase 97 U/L (41-126); BUN/Creat Ratio 10.67 Ratio (12.00-20.00); Blood Urea Nitrogen 9.6 mg/dL (9.0-27.0); Calcium 9.2 mg/dL (8.7-10.3); Carbon Dioxide 22.9 mmol/L (21.6-31.8); Chloride 103 mmol/L (96-109); Globulin 2.8 g/dL (1.6-3.3); Glucose 124 mg/dL (70-110); Potassium 4.5 mmol/L (3.5-5.5); Sodium 138 mmol/L (135-145); Total Bilirubin 0.5 mg/dL (0.3-1.2)
--- NOTE | 2023-10-17 11:30 | CA ---
Transthoracic Echo Report Name: Chava Cadena Age: 53 Gender: M : 1970 Exam Date: 10/17/2023 10:04 Exam Location: [facility] Ht (in): 75 Wt (lb): 320 Ordering Physician: Kyree Lopez MD ([id number]) Attending/Referring Phys: Sewage Screen Operator Fanny Galloway, NORAH Procedure CPT: Indications: SOB, orthopnea Cardiac Hx: Technical Quality: Fair Contrast 1: Total Dose (mL): Contrast 2: Total Dose (mL): MEASUREMENTS (Male / Female) Normal Values 2D ECHO LV Diastolic Diameter PLAX 4.8 cm 4.2 - 5.9 / 3.9 - 5.3 cm LV Systolic Diameter PLAX 3.3 cm IVS Diastolic Thickness 1.1 cm 0.6 - 1.0 / 0.6 - 0.9 cm LVPW Diastolic Thickness 0.8 cm 0.6 - 1.0 / 0.6 - 0.9 cm LV Relative Wall Thickness 0.4 LVOT Diameter 2.2 cm LV Diastolic Volume MOD 4C 129.4 cm??? LV Systolic Volume MOD 4C 49.7 cm??? LV Ejection Fraction MOD 4C 61.6 % LV Diastolic Length 4C 8.7 cm LV Systolic Length 4C 7.5 cm LV Diastolic Volume MOD 2C 119.7 cm??? LV Systolic Volume MOD 2C 52.8 cm??? LV Ejection Fraction MOD 2C 55.9 % LV Diastolic Length 2C 9.2 cm LV Systolic Length 2C 7.8 cm M-MODE Aortic Root Diameter MM 2.2 cm LA Systolic Diameter MM 2.2 cm LA Ao Ratio MM 1.0 DOPPLER AV Peak Velocity 204.1 cm/s AV Peak Gradient 16.7 mmHg AV Mean Gradient 9.2 mmHg AV Velocity Time Integral 41.8 cm LVOT Peak Velocity 79.6 cm/s LVOT Peak Gradient 2.5 mmHg LVOT Velocity Time Integral 17.5 cm LVOT Stroke Volume 69.5 cm??? LVOT Stroke Volume Index 25.9 ml/m??? AV Area Cont Eq vti 1.7 cm??? AV Area Cont Eq pk 1.5 cm??? FINDINGS Left Ventricle Left ventricular ejection fraction is estimated at 55-60%. Mildly increased septal wall thickness. Left ventricular cavity size normal. No obvious regional wall motion abnormalities. Right Ventricle Normal right ventricular size and function. Right Atrium Left Atrium Mitral Valve Aortic Valve Mild aortic stenosis with a peak gradient of 16 mmHg and a mean gradient of 9mmHg. Trace aortic regurgitation. Tricuspid Valve Pulmonic Valve Pericardium Echo free space anterior to the right ventricle likely represents a fat pad. Prominent epicardial fat. No pericardial or pleural effusion. Aorta Normal size aortic root and proximal ascending aorta. CONCLUSIONS LVH with preserved systolic function ejection fraction greater than 55% Very mild calcific aortic stenosis Previewed by: Dr. Kyree Lopez MD (Electronically Signed) Final Date: 17 October 2023 11:29
[2023-10-17] MEDS: DAPAGLIFLOZIN PROPANEDIOL 5 MG TABLET PO SCH (12:59)
--- NOTE | 2023-10-17 16:26 | P.PN ---
Subjective Progress Note Date: 10/17/23 Patient is a 53-year-old male with a past medical history of coronary artery disease status post stent to RCA on 08/31/2023, hypertension, diabetes type 2 ongoing nicotine addiction and mild aortic stenosis presents to ER with complaints of chest pain. Patient states that he started having chest pain this morning mainly in the epigastric region and midsternal region with dry heaves and mild jaw pain which she experienced during previous ME few months ago. He felt nauseous and also diaphoretic. He did take nitroglycerin sublingual x 3 which seemed to improve his pain. Pain lasted about half an hour.Mild shortness of breath associated. Denies any fever or chills. No cough or sputum production. No abdominal pain or diarrhea. No dysuria or hematuria. Laboratory data showed WBC 7.0 hemoglobin 15.1 and platelets 214 Sodium 137 potassium 4.1 chloride 108 bicarb is 21 BUN 10 and creatinine 0.17 blood sugar 121 Troponin x 2 negative liver enzymes not elevated magnesium 1.9 and lipase 136. 10/17/2023 Patient is seen and evaluated in follow-up today with cardiology following. Per nursing staff plan is for possible cardiac catheterization on Friday and will be continued on telemetry monitoring. Patient reports he currently is chest pain- free and inquiring if this can be done outpatient. Per who evaluated the patient this morning, plans for catheterization with his primary general laborer Dr. Lee on Friday while inpatient. Patient is afebrile with no reports of chest pain currently or shortness of breath. Patient does have nitro paste and reports he feels improved and continues to ask if he can go home. Discussed with him about the risk versus benefits given his significant history would benefit from staying to have catheterization prior to discharge. If in the event patient decides to leave it would be AGAINST MEDICAL ADVICE unless cardiology has cleared him. Encouraged increase activity as tolerated and will continue current medication regimen. Review of systems: Constitutional: No reports of fatigue, fever, or chills Cardiovascular: No reports of chest pain or palpitations Respiratory: No reports of shortness of breath or cough GI: No reports of nausea, vomiting, or diarrhea : No reports of dysuria or retention Neurovascular: No reports of weakness or numbness All medications have been reviewed Physical exam: Gen: This is a 53-year-old male who is awake, alert and oriented x 3, well- developed, well-nourished, morbidly obese HEENT: Head is atraumatic, normocephalic. Pupils equal, round. Sclerae is anicteric. NECK: Supple. No JVD. No lymphadenopathy. No thyromegaly. LUNGS: Clear to auscultation. No wheezes or rhonchi. No intercostal retractions. HEART: S1, S2 are muffled ABDOMEN: Soft. Obese. Bowel sounds are present. No masses. No tenderness. EXTREMITIES: No pedal edema. No calf tenderness. NEUROLOGICAL: Patient is awake, alert and oriented x3. Cranial nerves 2 through 12 are grossly intact. Assessment: Chest pain. Ruled out ACS. Troponins x 3 were negative. Patient had a similar symptoms when he had ME in August 2023 Coronary artery disease with history of stent placement to RCA on 08/31/2023 Hypertension Diabetes type 2 with A1c 6.6 during recent admission History of ME Current everyday smoker Morbid obesity BMI 40.0 DVT prophylax with heparin subcu GI prophylaxis Full code Plan: Patient will be continued on telemonitoring. Serial EKG and troponin x 3. Cardiology Dr. Lopez evaluated the patient today recommending cardiac catheterization with his general laborer while inpatient Dr. Bran on Friday. Continue with medications as prescribed including Nitropaste Encouraged increase activity as tolerated Diet has been resumed and patient will be n.p.o. on Friday at midnight for possible catheterization on Friday. Attempted to contact cardiology as patient is inquiring if this can be done outpatient as he reports to feeling fine. No response as of yet. 2D echo reordered and pending at this time. Continue heart healthy diabetic diet Labs reviewed and within normal limits Smoking cessation has been counseled extensively. Discussed with the patient that if he decides to leave, it would be AGAINST MEDICAL ADVICE unless cleared by cardiology. Patient verbalized understanding. The impression and plan of care has been dictated by Gwendolyn Renner, Nurse Practitioner as directed. Dr. Uriel MD I have performed a history and examination and MDM of this patient, discussed the same with the dictator, and agree with the dictator's assessment and plan as written ,documented as a scribe. Based on total visit time, I have performed more than 50% of the visit. Objective - Vital Signs Vital signs: Vital Signs Temp 98.6 F 06/14/24 07:00 Pulse 71 10/17/23 07:00 Resp 15 10/17/23 02:11 BP 126/75 10/17/23 07:00 Pulse Ox 96 10/17/23 07:00 FiO2 Intake & Output 10/16/23 10/17/23 10/17/23 18:59 06:59 18:59 Weight 145.15 kg Other: # Voids 1 2 # Bowel Movements 0 - Labs CBC & Chem 7: 10/17/23 06:45 10/17/23 06:45 Labs: Abnormal Lab Results - Last 24 Hours (Table) 10/17/23 Range/Units 06:45 Anion Gap 12.10 H (4.00-12.00) mmol/L BUN/Creatinine Ratio 10.67 L (12.00-20.00) Ratio Glucose 124 H (70-110) mg/dL Albumin/Globulin Ratio 1.50 L (1.60-3.17) Ratio
[2023-10-18] MEDS ORDERED: HEPARIN SODIUM,PORCINE (1 ML) 2,500 UNIT in SODIUM CHLORIDE 0.9% 250 ML IRRIGATION PRN (07:00)
[2023-10-18] MEDS ORDERED: HEPARIN SODIUM,PORCINE 10,000 UNIT in SODIUM CHLORIDE 0.9% 1,000 ML IRRIGATION PRN (07:00)
[2023-10-18] MEDS: lisinopriL 5 MG TAB PO STA (12:02)
--- NOTE | 2023-10-18 14:03 | P.PN ---
Subjective Progress Note Date: 10/18/23 SUBJECTIVE: Patient is doing well from cardiovascular standpoint. He denies any active chest pain chest pressure. He was hemodynamically stable. Blood pressure is noticed to be slightly elevated. PHYSICAL EXAMINATION Vital signs reviewed. Head: Normocephalic. Eyes: Sclerae nonicteric. Neck: Brisk carotid upstroke, no jugular venous distention. Lungs: Clear to auscultation. Heart: Regular rate and rhythm, S1-S2, no S3, no murmur or rub. Abdomen: Soft nontender, bowel sounds present, Extremities: No edema, Neuro: Alert, oriented, no focal neurological deficits. Detailed neuro exam was not performed. ASSESSMENT Substernal chest pain. Recent outpatient nuclear stress test which was negative Unstable angina CAD s/p recent PCI 1 month ago Essential hypertension Obesity Dyslipidemia PLAN Plan for cardiac catheterization with Dr. Lee on Friday Patient had a recent PCI done 1 month ago. Continue aspirin, Brilinta, atorvastatin. Continue beta-bridget Increase lisinopril to 10 mg for high blood pressure Monitor renal function Robert Swain MD, FACC, RPVI Thank you for allowing [facility] to participate in [facility] patient's care. Please contact us in case of any followup questions. Objective - Vital Signs Vital signs: Vital Signs Temp 97.6 F 10/18/23 07:00 Pulse 73 10/18/23 07:00 Resp 19 10/18/23 09:06 BP 144/98 10/18/23 07:00 Pulse Ox 95 10/18/23 07:00 FiO2 Intake & Output 10/17/23 10/18/23 10/18/23 18:59 06:59 18:59 Other: Voiding Method Toilet Toilet Toilet # Voids 3 2 - Labs CBC & Chem 7: 10/17/23 06:45 10/17/23 06:45
[2023-10-19] MEDS: lisinopriL 10 MG TAB PO SCH (08:40)
--- NOTE | 2023-10-19 20:39 | P.PN ---
Subjective Progress Note Date: 10/19/23 SUBJECTIVE: Patient is doing well from cardiovascular standpoint. He denies any active chest pain chest pressure. He was hemodynamically stable. Blood pressure is noticed to be slightly elevated. PHYSICAL EXAMINATION Vital signs reviewed. Head: Normocephalic. Eyes: Sclerae nonicteric. Neck: Brisk carotid upstroke, no jugular venous distention. Lungs: Clear to auscultation. Heart: Regular rate and rhythm, S1-S2, no S3, no murmur or rub. Abdomen: Soft nontender, bowel sounds present, Extremities: No edema, Neuro: Alert, oriented, no focal neurological deficits. Detailed neuro exam was not performed. ASSESSMENT Substernal chest pain. Recent outpatient nuclear stress test which was negative Unstable angina CAD s/p recent PCI 1 month ago Essential hypertension Obesity Dyslipidemia PLAN Plan for cardiac catheterization on Friday Patient had a recent PCI done 1 month ago. Continue aspirin, Brilinta, atorvastatin. Continue beta-bridget Increase lisinopril to 10 mg for high blood pressure Monitor renal function Robert Swain MD, FACC, RPVI Thank you for allowing [facility] to participate in this patient's care. Please contact us in case of any followup questions. Objective - Vital Signs Vital signs: Vital Signs Temp 96.2 F L 10/19/23 20:00 Pulse 70 10/19/23 20:00 Resp 18 10/19/23 20:00 BP 159/91 10/19/23 20:00 Pulse Ox 96 10/19/23 20:00 FiO2 Intake & Output 10/19/23 10/19/23 10/20/23 06:59 18:59 06:59 Other: Voiding Method Toilet Toilet # Voids 1 2 - Labs CBC & Chem 7: 10/17/23 06:45 10/17/23 06:45
[2023-10-20 10:17] LABS: Basophils # (A) 0.05 X 10*3/uL (0.00-0.10); Basophils % (A) 0.6 %; Eosinophils # (A) 0.26 X 10*3/uL (0.04-0.35); HCT 46.8 % (39.6-50.0); HGB 15.5 g/dL (13.0-17.0); Lymphocytes # (A) 3.12 X 10*3/uL (0.90-5.00); Lymphocytes % (A) 35.7 %; MCH 30.5 pg (27.0-32.0); MCHC 33.1 g/dL (32.0-37.0); MCV 92.1 FL (80.0-97.0); Mean Platelet Volume 10.5 FL (9.5-12.2); Monocytes # (A) 0.68 X 10*3/uL (0.20-1.00); Monocytes % (A) 7.8 %; NRBC Per 100 WBC 0 X 10*3/uL (0.00-0.01); Neutrophils # (A) 4.61 X 10*3/uL (1.80-7.70); Neutrophils % (A) 52.6 %; Platelet Count 235 X 10*3/uL (140-440); RBC 5.08 X 10*6/uL (4.40-5.60); WBC 8.75 X 10*3/uL (4.50-10.00)
[2023-10-20 10:26] LABS: BUN/Creat Ratio 11.67 Ratio (12.00-20.00); Blood Urea Nitrogen 10.5 mg/dL (9.0-27.0); Calcium 9.5 mg/dL (8.7-10.3); Carbon Dioxide 23.2 mmol/L (21.6-31.8); Chloride 99 mmol/L (96-109); Glucose 127 mg/dL (70-110); Potassium 4.7 mmol/L (3.5-5.5); Sodium 137 mmol/L (135-145)
--- NOTE | 2023-10-20 10:42 | P.PN ---
Subjective HISTORY OF PRESENT ILLNESS: Patient examined this morning at bedside. Patient currently denies any chest pain or pressure. He denies any shortness of breath. Vital signs are stable. Patient did have recent stenting to the proximal RCA and August [address] Connell. However the patient was not noted to have any other residual disease. Echocardiogram completed revealing ejection fraction 55 to 60%. PHYSICAL EXAM: VITAL SIGNS: Reviewed. GENERAL: Well-developed in no acute distress. NECK: Supple. No JVD or thyromegaly LUNGS: Respirations even and unlabored. Lungs essentially clear to auscultation bilaterally. HEART: Regular rate and rhythm. S1 and S2 heard. EXTREMITIES: Normal range of motion. No clubbing or cyanosis. Peripheral pulses intact. No lower extremity edema ASSESSMENT: Chest pain Coronary artery disease with recent PCI of the proximal RCA, 08/31/2023 Hypertension Hyperlipidemia Obesity: BMI 40.0 Nicotine dependence PLAN: Continue dual antiplatelet therapy with aspirin and Brilinta secondary to recent stenting Continue high intensity statin. LDL goal less than 60 Smoking cessation recommended. Patient to be referred to [place] quit line upon discharge Patient to undergo cardiac catheterization today Further recommendations pending patient course Nurse practitioner note has been reviewed by physician. Signing provider agrees with the documented findings, assessment, and plan of care documented by SENIOR MAINTENANCE MACHINIST as a scribe. Objective - Vital Signs Vital signs: Vital Signs Temp 98.6 F 10/20/23 07:00 Pulse 73 10/20/23 07:00 Resp 17 10/20/23 07:00 BP 153/91 10/20/23 07:00 Pulse Ox 94 L 10/20/23 07:00 FiO2 Intake & Output 10/19/23 10/20/23 10/20/23 18:59 06:59 18:59 Other: Voiding Method Toilet Toilet # Voids 2 1 - Labs CBC & Chem 7: 10/20/23 05:53 10/20/23 05:53 Labs: Abnormal Lab Results - Last 24 Hours (Table) 10/20/23 Range/Units 05:53 Anion Gap 14.80 H (4.00-12.00) mmol/L BUN/Creatinine Ratio 11.67 L (12.00-20.00) Ratio Glucose 127 H (70-110) mg/dL
[2023-10-20] MEDS ORDERED: HEPARIN SODIUM 1,000 UN/ML (10ML VL) ONE (11:44)
[2023-10-20] MEDS ORDERED: LIDOCAINE 1% INJ 10MG/ML (20 ML MDV) ONE (11:44)
[2023-10-20] MEDS ORDERED: VERAPAMIL 2.5 MG/ML 2 ML AMP ONE (11:44)
[2023-10-20] MEDS ORDERED: fentaNYL (PF) 50 MCG/ML 2 ML AMP ONE (11:44)
[2023-10-20] MEDS: LIDOCAINE 1% INJ 10MG/ML (20 ML MDV) SQ ONE (12:06)
[2023-10-20] MEDS: MIDAZOLAM 2 MG/2 ML VIAL IVP ONE ×2 (12:06→12:18)
[2023-10-20] MEDS: fentaNYL (PF) 50 MCG/1 ML VIAL IVP ONE (12:06)
[2023-10-20] MEDS: VERAPAMIL 2.5 MG/ML 4 ML VIAL INTRAARTER ONE (12:08)
[2023-10-20] MEDS: HEPARIN SODIUM 1,000 UN/ML (10ML VL) IVP ONE (12:22)
[2023-10-20] MEDS: IOPAMIDOL-370 100ML BTL INTRATHECA ONE (12:30)
[2023-10-20] MEDS: SODIUM CHLORIDE 0.9% 1,000 ML IV ONE (12:30)
--- NOTE | 2023-10-20 12:38 | P.CARDCATH ---
Date of Procedure: 10/20/23 Description of Procedure: DIAGNOSTIC CORONARY ANGIOGRAPHY and LEFT HEART CATH REPORT PROCEDURES PERFORMED: Left heart catheterization Selective coronary angiography Moderate conscious sedation 20 mins [Ultrasound assisted] Right radial access INDICATION: [Unstable angina] CONSENT: I have explained the procedural steps of above-mentioned procedures in layman's terms to the patient. I discussed the risks (including but not limited to stroke, emergent vascular or cardiac surgery or ), benefits and alternative therapies for the above-mentioned procedure. I discussed the risks of sedation/analgesia and blood product administration (if indicated). The patient has indicated understanding and acceptance of these risks. Conscious Sedation: Patient's ECG, heart rate, blood pressure, pulse oximetry were monitored throughout the duration of procedure under my direct supervision. 2 mg Versed and 50 mg Fentanyl were used for induction of moderate conscious sedation. Total duration of moderate concious sedation 20 minutes. PROCEDURE: After explaining the risks, benefits and alternatives of the above mentioned procedures in detail to the patient, informed consent was obtained. Patient was taken to the catheterization lab, prepped and draped in usual sterile fashion using universal precuations. Ultrasound was used to identify the radial artery. 1% lidocaine was infiltrated over the right radial artery. A 6-Bulgarian sheath was placed and secured in the right radial artery using modified Seldinger technique. The sheath was flushed and 5 mg verapamil was administered intra-arterially. J tipped wire was advanced under fluoroscopic guidance. Once the wire tip reached aortic root 7000 units of IV heparin was given. Over the wire JR5 diagnostic catheter was advanced. The wire in place the catheter was manipulated to cross the aortic valve and entered into LV under fluoroscopy guidance. The wire was removed and the catheter was flushed. LV pressures were obtained and pullback was performed under fluoroscopy. Catheter was manipulated to selectively engage the right coronary ostium. Right coronary angiography was performed in different angiographic projections. The JR4 diagnostic catheter was exchanged for a JL 3.5 diagnostic catheter over the J-wire. The wire was removed, catheter was flushed and manipulated under fluoroscopy to selectively engaged the left coronary ostium. Left coronary angioplasty was performed in different angiographic projections. Catheter was removed over the wire. Radial sheath was flushed. The right radial sheath was removed and a TR band was placed with excellent patent hemostasis was achieved. The patient tolerated the procedure well. Patient was transported back to the post catheterization holding area in stable condition. Angiographic images were reviewed in detail. HEMODYNAMICS: Aortic Pressure: 140/80 mmHg. LV pressure: 142/0 mmHg. LVEDP 8 mmHg. There was no significant gradient across the aortic valve. SELECTIVE CORONARY ARTERIOGRAPHY: LEFT MAIN: The left main is a large caliber vessel which bifurcates into the LAD and circumflex. Left main appears angiographically normal. LEFT ANTERIOR DESCENDING CORONARY ARTERY: LAD is a large caliber vessel which wraps around to the apex. Proximal LAD appears angiographically normal. Mid LAD appears angiographically normal. Distal LAD appears angiographically normal. It gives rise to diagonal branches appear angiographically normal LEFT CIRCUMFLEX CORONARY ARTERY: It is nondominant vessel. Left circumflex is a moderate caliber vessel. It appears angiographically normal. It gives rise to OM branches appear angiographically normal RIGHT CORONARY ARTERY: Dominant vessel. The right coronary artery is a large caliber vessel which gives PDA and PLV branch. Prox RCA stent is patent. mid and distal RCA mild luminal irregularities. PDA and PL branch appears angiographically normal IMPRESSION: Angiographically normal coronary arteries as described above. Normal left sided filling pressures PLAN: Aggressive risk factor modification per most recent ACC/AHA guidelines. 125 cc fluids for 4 hours Discharge home in 4 hours Follow-up in the office in 1-[address] Bran Patient's chest pain is not related to coronary artery disease. It could be related to elevated blood pressure would recommend optimization of antianginal and good blood pressure control. Would recommend smoking cessation. There is okay to be discharged from cardiovascular standpoint. Performing Physician Robert Swain MD, FACC, RPVI Thank you for allowing [facility] to participate in this patient's care. Feel free to reach out in case of any followup questions.
[2023-10-20] MEDS ORDERED: RX INFO: IV CONTRAST WAS GIVEN 1 EACH MISC MISCELLANE PRN (12:42)
--- NOTE | 2023-10-20 12:42 | P.PN ---
Subjective Progress Note Date: 10/18/23 Patient is a 53-year-old male with a past medical history of coronary artery disease status post stent to RCA on 08/31/2023, hypertension, diabetes type 2 ongoing nicotine addiction and mild aortic stenosis presents to ER with complaints of chest pain. Patient states that he started having chest pain this morning mainly in the epigastric region and midsternal region with dry heaves and mild jaw pain which she experienced during previous [facility] few months ago. He felt nauseous and also diaphoretic. He did take nitroglycerin sublingual x 3 which seemed to improve his pain. Pain lasted about half an hour.Mild shortness of breath associated. Denies any fever or chills. No cough or sputum production. No abdominal pain or diarrhea. No dysuria or hematuria. Laboratory data showed WBC 7.0 hemoglobin 15.1 and platelets 214 Sodium 137 potassium 4.1 chloride 108 bicarb is 21 BUN 10 and creatinine 0.17 b lood sugar 121 Troponin x 2 negative liver enzymes not elevated magnesium 1.9 and lipase 136. 10/17/2023 Patient is seen and evaluated in follow-up today with cardiology following. Per nursing staff plan is for possible cardiac catheterization on Friday and will be continued on telemetry monitoring. Patient reports he currently is chest pain- free and inquiring if this can be done outpatient. Per who evaluated the patient this morning, plans for catheterization with his primary ca rdiologist Dr. Lee on Friday while inpatient. Patient is afebrile with no reports of chest pain currently or shortness of breath. Patient does have nitro paste and reports he feels improved and continues to ask if he can go home. Discussed with him about the risk versus benefits given his significant history would benefit from staying to have catheterization prior to discharge. If in the event patient decides to leave it would be AGAINST MEDICAL ADVICE unless cardiology has cleared him. Encouraged increase activity as tolerated and will continue current medication regimen. 10/18/2023 Patient is currently resting in bed. Awake alert and oriented x 3. No complaints of chest pain or shortness of breath. No headache or dizziness or lightheadedness. Hemodynamically stable. Patient is scheduled for cardiac catheterization on Friday. Laboratory data reviewed. Review of systems: Constitutional: No reports of fatigue, fever, or chills Cardiovascular: No reports of chest pain or palpitations Respiratory: No reports of shortness of breath or cough GI: No reports of nausea, vomiting, or diarrhea : No reports of dysuria or retention Neurovascular: No reports of weakness or numbness All medications have been reviewed Physical exam: Gen: This is a 53-year-old male who is awake, alert and oriented x 3, well- developed, well-nourished, morbidly obese HEENT: Head is atraumatic, normocephalic. Pupils equal, round. Sclerae is anicteric. NECK: Supple. No JVD. No lymphadenopathy. No thyromegaly. LUNGS: Clear to auscultation. No wheezes or rhonchi. No intercostal retractions . HEART: S1, S2 are muffled ABDOMEN: Soft. Obese. Bowel sounds are present. No masses. No tenderness. EXTREMITIES: No pedal edema. No calf tenderness. NEUROLOGICAL: Patient is awake, alert and oriented x3. Cranial nerves 2 through 12 are grossly intact. Assessment: Chest pain. Ruled out ACS. Troponins x 3 were negative. Patient had a similar symptoms when he had [facility] in August 2023 Coronary artery disease with history of stent placement to RCA on 08/31/2023 Hypertension Diabetes type 2 with A1c 6.6 during recent admission History of [facility] Current everyday smoker Morbid obesity BMI 40.0 DVT prophylax with heparin subcu GI prophylaxis Full code Plan: Patient will be continued on telemonitoring. Serial EKG and troponin x 3. Cardiology Dr. Lopez evaluated the patient. recommending cardiac catheterization with his setter automatic spinning lathe while inpatient Dr. Bran on Friday. Continue with medications as prescribed including Nitropaste Encouraged increase activity as tolerated Diet has been resumed and patient will be n.p.o. on Friday at midnight for possible catheterization on Friday. 2D echo reordered and pending at this time. Continue heart healthy diabetic diet Labs reviewed and within normal limits Smoking cessation has been counseled extensively. Discussed with the patient that if he decides to leave, it would be AGAINST MEDICAL ADVICE unless cleared by cardiology. Patient verbalized understanding. Objective - Vital Signs Vital signs: Vital Signs Temp 98.0 F 10/19/23 06:55 Pulse 67 10/19/23 06:55 Resp 16 10/19/23 08:40 BP 136/85 10/19/23 06:55 Pulse Ox 97 10/19/23 06:55 FiO2 Intake & Output 10/18/23 10/19/23 10/19/23 18:59 06:59 18:59 Other: Voiding Method Toilet Toilet Toilet # Voids 1 1 - Labs CBC & Chem 7: 10/20/23 05:53 10/20/23 05:53
--- NOTE | 2023-10-20 12:44 | P.PN ---
Subjective Progress Note Date: 10/19/23 Patient is a 53-year-old male with a past medical history of coronary artery disease status post stent to RCA on 08/31/2023, hypertension, diabetes type 2 ongoing nicotine addiction and mild aortic stenosis presents to ER with complaints of chest pain. Patient states that he started having chest pain this morning mainly in the epigastric region and midsternal region with dry heaves and mild jaw pain which she experienced during previous [place] few months ago. He felt nauseous and also diaphoretic. He did take nitroglycerin sublingual x 3 which seemed to improve his pain. Pain lasted about half an hour.Mild shortness of breath associated. Denies any fever or chills. No cough or sputum production. No abdominal pain or diarrhea. No dysuria or hematuria. Laboratory data showed WBC 7.0 hemoglobin 15.1 and platelets 214 Sodium 137 potassium 4.1 chloride 108 bicarb is 21 BUN 10 and creatinine 0.17 b lood sugar 121 Troponin x 2 negative liver enzymes not elevated magnesium 1.9 and lipase 136. 10/17/2023 Patient is seen and evaluated in follow-up today with cardiology following. Per nursing staff plan is for possible cardiac catheterization on Friday and will be continued on telemetry monitoring. Patient reports he currently is chest pain- free and inquiring if this can be done outpatient. Per who evaluated the patient this morning, plans for catheterization with his primary ca rdiologist Dr. Lee on Friday while inpatient. Patient is afebrile with no reports of chest pain currently or shortness of breath. Patient does have nitro paste and reports he feels improved and continues to ask if he can go home. Discussed with him about the risk versus benefits given his significant history would benefit from staying to have catheterization prior to discharge. If in the event patient decides to leave it would be AGAINST MEDICAL ADVICE unless cardiology has cleared him. Encouraged increase activity as tolerated and will continue current medication regimen. 10/18/2023 Patient is currently resting in bed. Awake alert and oriented x 3. No complaints of chest pain or shortness of breath. No headache or dizziness or lightheadedness. Hemodynamically stable. Patient is scheduled for cardiac catheterization on Friday. Laboratory data reviewed. 10/19/2023 Patient is resting in the bed. Awake alert and oriented x 3. No complaints of chest pain or shortness of breath. No nausea vomiting abdominal pain or diarrhea. No cough or sputum production. Blood pressure is 136/85 this morning. Pulse 67 respiration 16 and pulse ox 97% on room air. No new laboratory today. Patient is scheduled for cardiac catheterization tomorrow. Follow-up CBC and BMP tomorrow. Review of systems: Constitutional: No reports of fatigue, fever, or chills Cardiovascular: No reports of chest pain or palpitations Respiratory: No reports of shortness of breath or cough GI: No reports of nausea, vomiting, or diarrhea : No reports of dysuria or retention Neurovascular: No reports of weakness or numbness All medications have been reviewed Physical exam: Gen: This is a 53-year-old male who is awake, alert and oriented x 3, well- developed, well-nourished, morbidly obese HEENT: Head is atraumatic, normocephalic. Pupils equal, round. Sclerae is anicteric. NECK: Supple. No JVD. No lymphadenopathy. No thyromegaly. LUNGS: Clear to auscultation. No wheezes or rhonchi. No intercostal retractions. HEART: S1, S2 are muffled ABDOMEN: Soft. Obese. Bowel sounds are present. No masses. No tenderness. EXTREMITIES: No pedal edema. No calf tenderness. NEUROLOGICAL: Patient is awake, alert and oriented x3. Cranial nerves 2 through 12 are grossly intact. Assessment: Chest pain. Ruled out ACS. Troponins x 3 were negative. Patient had a similar symptoms when he had [facility] in August 2023 Coronary artery disease with history of stent placement to RCA on 08/31/2023 Hypertension Diabetes type 2 with A1c 6.6 during recent admission History of [facility] Current everyday smoker Morbid obesity BMI 40.0 DVT prophylax with heparin subcu GI prophylaxis Full code Plan: Patient will be continued on telemonitoring. Serial EKG and troponin x 3. Cardiology Dr. Lopez evaluated the patient today recommending cardiac catheterization with his personal security specialist while inpatient Dr. Bran on Friday. Continue with medications as prescribed including Nitropaste Encouraged increase activity as tolerated Diet has been resumed and patient will be n.p.o. on Friday at midnight for possible catheterization on Friday. 2D echo reordered and pending at this time. Lisinopril dose increased for better blood pressure control. Continue heart healthy diabetic diet Labs reviewed and within normal limits Smoking cessation has been counseled extensively. Discussed with the patient that if he decides to leave, it would be AGAINST MEDICAL ADVICE unless cleared by cardiology. Patient verbalized understanding. Objective - Vital Signs Vital signs: Vital Signs Temp 98.0 F 10/19/23 06:55 Pulse 67 10/19/23 06:55 Resp 16 10/19/23 08:40 BP 136/85 10/19/23 06:55 Pulse Ox 97 10/19/23 06:55 FiO2 Intake & Output 10/18/23 10/19/23 10/19/23 18:59 06:59 18:59 Other: Voiding Method Toilet Toilet Toilet # Voids 1 1 - Labs CBC & Chem 7: 10/20/23 05:53 10/20/23 05:53
[2023-10-20 12:56] VITALS: RESP 14; TEMP 97.8
[2023-10-20] MEDS: SODIUM CHLORIDE 0.9% 1,000 ML IV SCH (13:00)
[2023-10-20 17:22] VITALS: BP 123/81; PULSE 74
--- NOTE | 2023-10-25 10:37 | P.DS ---
Providers Date of admission: 10/16/23 10:49 Expected date of discharge: 10/20/23 Attending physician: Pasquale Trevino Consults: 10/16/23 10:47 Consult Physician Routine Consulting Provider: [facility] Reason/Comments: chest pain Do you want consulting provider notified?: Yes Primary care physician: Stated None Hospital Course: Final diagnosis Chest pain. Ruled out ACS. Troponins x 3 were negative. Patient had a similar symptoms when he had [facility] in August 2023. Status post cardiac catheterization with no intervention needed Coronary artery disease with history of stent placement to RCA on 08/31/2023 Hypertension Diabetes type 2 with A1c 6.6 during recent admission History of [place] Current everyday smoker Morbid obesity BMI 40.0 DVT prophylax with heparin subcu GI prophylaxis Full code Discharge disposition Patient is being discharged in a stable condition with guarded prognosis to home. Patient will follow-up with Dr. Shea in the outpatient setting upon discharge. Patient is to continue with current cardiac medications and outpatient follow-up with cardiology as scheduled. Total time taken is greater than 35 minutes. Hospital course This is a 53-year-old male who was recently admitted with chest pain with troponins that were negative and evaluated by cardiology. Patient did have a recent hospitalization with heart attack in August 2023 and felt similar symptoms. Given patient's significant history cardiology recommending being evaluated closely and repeat cardiac catheterization. Patient underwent cardiac catheterization showing patent stents and coronary artery disease recommending risk factor modifications and continuing with current medications with outpatient follow-up. Patient has been cleared by cardiology for discharge. Please refer to cardiology notes for further HPI. Currently no reports of chest pain, shortness of breath, or palpitations. Patient is afebrile. No reports of nausea or vomiting and patient is tolerating diet. Patient will be discharged home today. Guarded prognosis and high risk for readmissions given patient's comorbidities. Smoking cessation extensively counseled. Physical exam: Gen: This is a 53-year-old male who is awake, alert and oriented x 3, well- developed, well-nourished, morbidly obese HEENT: Head is atraumatic, normocephalic. Pupils equal, round. Sclerae is anicte gonzalez. NECK: Supple. No JVD. No lymphadenopathy. No thyromegaly. LUNGS: Clear to auscultation. No wheezes or rhonchi. No intercostal retractions. HEART: S1, S2 are muffled ABDOMEN: Soft. Obese. Bowel sounds are present. No masses. No tenderness. EXTREMITIES: No pedal edema. No calf tenderness. NEUROLOGICAL: Patient is awake, alert and oriented x3. Cranial nerves 2 through 12 are grossly intact. Please refer to medication reconciliation sheet for a list of medications. The impression and plan of care has been dictated by Gwendolyn Renner, Nurse Practitioner as directed. Dr. Ezekiel MD I have performed a history and examination and MDM of this patient, discussed the same with the dictator, and agree with the dictator's assessment and plan as written ,documented as a scribe. Based on total visit time, I have performed more than 50% of the visit. Patient Condition at Discharge: Stable Plan - Discharge Summary Discharge Rx Participant: Yes New Discharge Prescriptions: New Famotidine [Pepcid] 20 mg PO BID #60 tablet lisinopriL [Zestril] 10 mg PO DAILY #90 tab Continue Aspirin 81 mg PO DAILY #30 tab Ticagrelor [Brilinta] 90 mg PO BID #60 tab Dapagliflozin Propanediol [Farxiga] 5 mg PO DAILY #30 tablet Metoprolol Tartrate [Lopressor] 25 mg PO BID #60 tab Nitroglycerin Sl Tabs [Nitrostat] 0.4 mg SUBLINGUAL Q5M PRN #10 tab PRN Reason: Chest Pain Acetaminophen Tab [Tylenol] 650 mg PO Q6HR PRN tab PRN Reason: Mild Pain Or Fever > 100.5 HYDROcodone/APAP 10-325MG [Painter 10-325] 1 tab PO TID PRN PRN Reason: Pain Atorvastatin [Lipitor] 80 mg PO HS #30 tab Naloxone HCl [Narcan] 4 mg NASAL ONCE PRN PRN Reason: opioid overdose Discontinued lisinopriL [Zestril] 5 mg PO DAILY #30 tab Discharge Medication List HYDROcodone/APAP 10-325MG [Painter 10-325] 1 tab PO TID PRN 08/31/23 [History] Acetaminophen Tab [Tylenol] 650 mg PO Q6HR PRN tab 09/04/23 [Rx] Aspirin 81 mg PO DAILY #30 tab 09/04/23 [Rx] Atorvastatin [Lipitor] 80 mg PO HS #30 tab 09/04/23 [Rx] Dapagliflozin Propanediol [Farxiga] 5 mg PO DAILY #30 tablet 09/04/23 [Rx] Metoprolol Tartrate [Lopressor] 25 mg PO BID #60 tab 09/04/23 [Rx] Nitroglycerin Sl Tabs [Nitrostat] 0.4 mg SUBLINGUAL Q5M PRN #10 tab 09/04/23 [Rx] Ticagrelor [Brilinta] 90 mg PO BID #60 tab 09/04/23 [Rx] Naloxone HCl [Narcan] 4 mg NASAL ONCE PRN 10/16/23 [History] Famotidine [Pepcid] 20 mg PO BID #60 tablet 10/20/23 [Rx] lisinopriL [Zestril] 10 mg PO DAILY #90 tab 10/20/23 [Rx] Follow up Appointment(s)/Referral(s): Elie Shea [REFERRING] - 1 Week Jl Bran MD [STAFF PHYSICIAN] - 10/27/23 4:30 pm Activity/Diet/Wound Care/Special Instructions: Activity limited until follow-up Follow-up with primary care provider on discharge Follow-up with cardiology Dr. Bran as discussed Continue taking medications as prescribed Discharge Disposition: HOME SELF-CARE
== END 2023-10-20 17:45 | disposition home or self-care (01) ==
LOC: EC 09:14 → 6NMEDSUR 10:48 → UNDOADMOB 10:48 → OBSVTOIN 10:49 → INTOOBSV 10:49 → 6NMEDSUR 10:49 → UNDODISIN 10-20 17:45
PROVIDERS: ADMIT Internal Medicine; ATTEND Internal Medicine
DX: I25.110 Atherosclerotic heart disease of native coronary artery with unstable angina pectoris (principal); Z68.41 Body mass index [BMI] 40.0-44.9, adult; I10 Essential (primary) hypertension; E78.5 Hyperlipidemia, unspecified; E11.9 Type 2 diabetes mellitus without complications; I25.2 Old myocardial infarction; F17.200 Nicotine dependence, unspecified, uncomplicated; E66.01 Morbid (severe) obesity due to excess calories; Z95.5 Presence of coronary angioplasty implant and graft; Z79.82 Long term (current) use of aspirin; Z79.84 Long term (current) use of oral hypoglycemic drugs; Z79.899 Other long term (current) drug therapy; Z79.01 Long term (current) use of anticoagulants; Z88.0 Allergy status to penicillin
CPT/HCPCS: 96361 ×3; 96372 ×6; 96374; 99285; 36415; 93306; 93458; 76937; 83880; 80053 ×2; 80048; 83690; 83735; 84484; 85025 ×3; 85610; 85730; 71046; G0378 ×5; C1769 ×2; C1894; J2250; J1644 ×6; J2405; J2001; Q9967; J3010

== ENCOUNTER → 2024-11-26 | Outpatient (CLI) | payer BC ==
--- NOTE | 2024-11-28 18:10 | US ---
EXAMINATION TYPE: US abdomen complete DATE OF EXAM: 11/26/2024 COMPARISON: NONE CLINICAL INDICATION: Male, 54 years old with history of R11.10 VOMITING, UNSPECIFIED; Patient states being N/V in the mornings. TECHNIQUE: Grayscale and color Doppler imaging of the abdomen was performed. FINDINGS: EXAM MEASUREMENTS: Liver Length: 17.2 cm Gallbladder Wall: 0.1 cm Spleen: 12.4 cm Right Kidney: 12.1 x 6.0 x 4.9 cm Left Kidney: 12.4 x 5.9 x 4.7 cm Pancreas: Tail obscured by overlying bowel gas. Liver: Diffusely echogenic and attenuating. Borderline enlarged. Gallbladder: No stones or wall thickening. Evidence for sonographic Garduno's sign: neg CBD: Obscured by overlying bowel gas Spleen: Numerous echogenic foci suggesting sequela of prior granulomatous disease. Right Kidney: wnl, No hydronephrosis, calculi or masses seen Left Kidney: wnl, No hydronephrosis, calculi or masses seen Upper IVC: wnl Abd Aorta: No AAA visualized seen at time of scan IMPRESSION: 1. Borderline hepatomegaly at 17.2 cm with severe hepatic steatosis. Appropriate clinical management is advised. 2. No gallstones. 3. The bile duct is obscured by bowel gas and could not be evaluated on the present exam. [facility], , 11/28/2024 6:08 PM
== END | disposition home or self-care (01) ==
LOC: RADUSWWP 07:40
PROVIDERS: ATTEND Internal Medicine
DX: K76.0 Fatty (change of) liver, not elsewhere classified (principal)
CPT/HCPCS: 76700